=== PATIENT | male | born 1965 | race Caucasian/White ===

== ENCOUNTER 2019-04-15 11:04 | Outpatient (CLI) | payer BC, SELFPAY ==
[2019-04-15 11:18] LABS: Add Urine Microscopic? NO; Appearance Urine Clear (Clear); Bilirubin Urine Negative (Negative); Blood Urine Negative (Negative); Color Urine Yellow (Yellow); Glucose Urine UA Negative (Negative); Ketones Urine Negative (Negative); Leukocyte Esterase Ur Negative (Negative); Nitrate Urine Negative (Negative); Protein Urine Negative (Negative); Urobilinogen Urine 0.2 mg/dL (0.2-1.0); pH Urine 6.5 (5.0-8.0)
[2019-04-15 13:39] LABS: Anion Gap 14.7 mmol/L (7-16); Aspartate Amino Transferase 14 U/L (15-37); Bilirubin,Total 0.4 mg/dL (0.00-1.00); Blood Urea Nitrogen 17 mg/dL (7-18); Calcium 8.8 mg/dL (8.5-10.1); Carbon Dioxide 26 mmol/L (21-32); Chloride 106 mmol/L (98-108); Estimated Glomerular Filt Rate > 60; Glucose 93 mg/dL (70-99); Osmolality Calculated 295 mOsm/kg (285-295); Potassium 4.7 mmol/L (3.5-5.1); Sodium 142 mmol/L (136-145)
[2019-04-15 13:40] LABS: Alanine Aminotransferase 28 U/L (16-63); Albumin Level 4.4 g/dL (3.4-5.0); Alkaline Phosphatase 54 U/L (46-116); Cholesterol 196 mg/dL (0-200); Creatine Kinase 90 U/L (39-308); HDL Direct 45 mg/dL (40-60); LDL Cholesterol Calculated 132 mg/dL (<130); Prostate Specific Antigen 1.2 ng/mL (< OR = 4.0); Total Protein 7.2 g/dL (6.4-8.2); Triglycerides 93 mg/dL (0-150)
== END 2019-04-15 11:05 | disposition home or self-care (01) ==
LOC: CHSLAB 11:09
PROVIDERS: PCP Internal Medicine; Visit Provider Internal Medicine
DX: E78.2 Mixed hyperlipidemia (principal); I10 Essential (primary) hypertension; R73.01 Impaired fasting glucose; Z12.5 Encounter for screening for malignant neoplasm of prostate
CPT/HCPCS: 36415; 80053; 80061; 81003; 82550; 83036; 84153; G0103

== ENCOUNTER 2019-11-07 09:55 | Outpatient (CLI) | payer BC, SELFPAY ==
[2019-11-07 10:27] LABS: Add Urine Microscopic? NO; Appearance Urine Clear (Clear); Bilirubin Urine Negative (Negative); Blood Urine Negative (Negative); Color Urine Yellow (Yellow); Glucose Urine UA Negative (Negative); Ketones Urine Negative (Negative); Leukocyte Esterase Ur Negative (Negative); Nitrate Urine Negative (Negative); Protein Urine Negative (Negative); Specific Grav Ur 1.025 (1.010-1.020); Urobilinogen Urine 0.2 mg/dL (0.2-1.0)
[2019-11-07 10:32] LABS: Hemoglobin A1C 5.5 % (<5.7)
[2019-11-07 11:03] LABS: Alanine Aminotransferase 26 U/L (16-63); Albumin Level 4.5 g/dL (3.4-5.0); Alkaline Phosphatase 60 U/L (46-116); Anion Gap 9 mmol/L (8-16); Aspartate Amino Transferase 10 U/L (15-37); Bilirubin,Total 0.6 mg/dL (0.00-1.00); Blood Urea Nitrogen 18 mg/dL (7-18); Carbon Dioxide 26 mmol/L (21-32); Chloride 103 mmol/L (98-108); Cholesterol 273 mg/dL (0-200); Creatine Kinase 73 U/L (39-308); Estimated Glomerular Filt Rate > 60; Glucose 103 mg/dL (70-99); HDL Direct 46 mg/dL (40-60); LDL Cholesterol Calculated 198 mg/dL (<130); Osmolality Calculated 287 mOsm/kg (285-295); Prostate Specific Antigen 1.2 ng/mL (< OR = 4.0); Sodium 138 mmol/L (136-145); Total Protein 7.3 g/dL (6.4-8.2); Triglycerides 146 mg/dL (0-150)
== END 2019-11-07 09:56 | disposition home or self-care (01) ==
PROVIDERS: PCP Internal Medicine; Visit Provider Internal Medicine
DX: E78.2 Mixed hyperlipidemia (principal); I10 Essential (primary) hypertension; R73.01 Impaired fasting glucose; Z12.5 Encounter for screening for malignant neoplasm of prostate
CPT/HCPCS: 36415; 80053; 80061; 81003; 82550; 83036; 84153; G0103

== ENCOUNTER 2020-05-18 08:39 | Outpatient (CLI) | payer BC, SELFPAY ==
[2020-05-18 08:50] LABS: Add Urine Microscopic? NO; Appearance Urine Clear (Clear); Bilirubin Urine Negative (Negative); Blood Urine Negative (Negative); Color Urine Yellow (Yellow); Glucose Urine UA Negative (Negative); Ketones Urine Negative (Negative); Leukocyte Esterase Ur Negative (Negative); Nitrate Urine Negative (Negative); Protein Urine Negative (Negative); Urobilinogen Urine 0.2 mg/dL (0.2-1.0)
[2020-05-18 08:59] LABS: Hemoglobin A1C 5.9 % (<5.7)
[2020-05-18 09:20] LABS: Alanine Aminotransferase 28 U/L (16-63); Albumin Level 4.1 g/dL (3.4-5.0); Alkaline Phosphatase 54 U/L (46-116); Anion Gap 10 mmol/L (8-16); Aspartate Amino Transferase 15 U/L (15-37); Bilirubin,Total 0.4 mg/dL (0.00-1.00); Blood Urea Nitrogen 14 mg/dL (7-18); Calcium 8.9 mg/dL (8.5-10.1); Carbon Dioxide 27 mmol/L (21-32); Chloride 104 mmol/L (98-108); Cholesterol 150 mg/dL (0-200); Creatine Kinase 112 U/L (39-308); Estimated Glomerular Filt Rate > 60; Glucose 105 mg/dL (70-99); HDL Direct 44 mg/dL (40-60); LDL Cholesterol Calculated 89 mg/dL (<130); Osmolality Calculated 292 mOsm/kg (285-295); Potassium 4.5 mmol/L (3.5-5.1); Sodium 141 mmol/L (136-145); Total Protein 6.8 g/dL (6.4-8.2); Triglycerides 84 mg/dL (0-150)
== END 2020-05-18 08:40 | disposition home or self-care (01) ==
PROVIDERS: PCP Internal Medicine; Visit Provider Internal Medicine
DX: R73.01 Impaired fasting glucose (principal); I10 Essential (primary) hypertension; E78.2 Mixed hyperlipidemia
CPT/HCPCS: 36415; 80053; 80061; 81003; 82550; 83036

== ENCOUNTER 2020-11-06 10:21 | Outpatient (CLI) | payer BC, SELFPAY ==
--- NOTE | ~2020-11-06 | XR_ITS ---
EXAMINATION: XR forearm RT 2V, XR hand RT min 3V, XR wrist RT min 3V DATE: 11/06/2020 10:47 INDICATION: TECHNIQUE: 1. AP an lateral views of the affected forearm were obtained. 2. Posteroanterior, ulnar deviation, oblique, and lateral views of the right wrist were obtained. 2. Dorsal palmar, oblique and lateral views of the right hand were obtained. COMPARISON: None. FINDINGS: Alignment of the right elbow, hand and wrist are normal. Thin linear lucency consistent with nondispl aced fracture extending across the base of the ulnar styloid process. There is soft tissue swelling a long the ulnar side of the wrist and distal forearm. No other fractures identified. Mild polyarticula r osteoarthritis at the distal radioulnar, triscaphe and a few predominantly distal interphalangeal j oints. No right elbow joint effusion. Small enthesopathic ossicles at the medial and lateral humeral epicondyles. IMPRESSION: 1. Nondisplaced fracture across the base of the ulnar styloid process. Reviewed, dictated and finalized at location A. IMPRESSION: 1. Nondisplaced fracture across the base of the ulnar styloid process. IMPRESSION: 1. Nondisplaced fracture across the base of the ulnar styloid process.
== END 2020-11-06 10:22 | disposition home or self-care (01) ==
LOC: CHSIMG 10:26
PROVIDERS: PCP Internal Medicine; Visit Provider Internal Medicine
DX: S69.91XA Unspecified injury of right wrist, hand and finger(s), initial encounter (principal); S59.911A Unspecified injury of right forearm, initial encounter
CPT/HCPCS: 73090; 73110; 73130

== ENCOUNTER 2020-12-06 09:09 | Outpatient (CLI) | payer BC, SELFPAY ==
--- NOTE | ~2020-12-06 | XR_ITS ---
XR wrist RT min 3V DATE: 12/06/2020 09:56 INDICATION: Fracture follow-up TECHNIQUE: 4 views COMPARISON: 11/06/2020 right wrist FINDINGS: The linear nondisplaced fracture of the base of the ulnar styloid process is more lucent co mpared to 11/06/2020, compatible with some bone resorption at the fracture site and/or interval minima l displacement. No other fracture or dislocation. Radiocarpal alignment is preserved. There is narrowing at the triscaphe joint. IMPRESSION: Increased lucency at the fracture line at the base of the ulnar styloid process Reviewed, dictated and finalized at location B. IMPRESSION: Increased lucency at the fracture line at the base of the ulnar sty loid process
[2020-12-06 09:21] LABS: Add Urine Microscopic? NO; Appearance Urine Clear (Clear); Bilirubin Urine Negative (Negative); Blood Urine Negative (Negative); Color Urine Light Yellow (Yellow); Glucose Urine UA Negative (Negative); Ketones Urine Negative (Negative); Leukocyte Esterase Ur Negative (Negative); Nitrate Urine Negative (Negative); Protein Urine Negative (Negative); Urobilinogen Urine 0.2 mg/dL (0.2-1.0)
[2020-12-06 09:30] LABS: Creatinine Urine 71.41 mg/dL (40-278); MALB Creatinine Ratio 18.2 mg/g (0-30); Microalbumin Urine Random < 13.0 mg/L
[2020-12-06 09:31] LABS: Hemoglobin A1C 5.9 % (<5.7)
[2020-12-06 09:59] LABS: Alanine Aminotransferase 31 U/L (16-63); Alkaline Phosphatase 52 U/L (46-116); Anion Gap 12 mmol/L (8-16); Aspartate Amino Transferase 13 U/L (15-37); Bilirubin,Total 0.4 mg/dL (0.00-1.00); Blood Urea Nitrogen 14 mg/dL (7-18); Calcium 8.7 mg/dL (8.5-10.1); Carbon Dioxide 25 mmol/L (21-32); Chloride 102 mmol/L (98-108); Cholesterol 167 mg/dL (0-200); Creatine Kinase 67 U/L (39-308); Estimated Glomerular Filt Rate > 60; Glucose 96 mg/dL (70-99); HDL Direct 46 mg/dL (40-60); LDL Cholesterol Calculated 99 mg/dL (<130); Osmolality Calculated 288 mOsm/kg (285-295); Potassium 4.4 mmol/L (3.5-5.1); Prostate Specific Antigen 1.6 ng/mL (< OR = 4.0); Sodium 139 mmol/L (136-145); Total Protein 6.7 g/dL (6.4-8.2); Triglycerides 108 mg/dL (0-150)
== END 2020-12-06 09:10 | disposition home or self-care (01) ==
LOC: CHSLAB 09:11
PROVIDERS: PCP Internal Medicine; Visit Provider Internal Medicine
DX: K21.9 Gastro-esophageal reflux disease without esophagitis (principal); I10 Essential (primary) hypertension; E78.2 Mixed hyperlipidemia; R73.01 Impaired fasting glucose; Z12.5 Encounter for screening for malignant neoplasm of prostate; S62.101D Fracture of unspecified carpal bone, right wrist, subsequent encounter for fracture with routine healing
CPT/HCPCS: 36415; 73110; 80053; 80061; 81003; 82043; 82550; 83036; 84153; G0103

== ENCOUNTER 2021-01-01 09:31 | Outpatient (CLI) | payer BC, SELFPAY ==
--- NOTE | ~2021-01-01 | MR_ITS ---
EXAMINATION: MR wrist RT wo con DATE: 01/01/2021 10:55 INDICATION: Fracture of styloid process of right ulna. TECHNIQUE: Magnetic resonance imaging (MRI) of the wrist was performed without intravenous contrast. Sequences performed include coronal T1-weighted FSE, coronal PD-weighted FS FSE, axial PD-weighted FS FSE, axial PD-weighted FSE, sagittal PD-weighted FSE, and sagittal PD-weighted FS FSE. COMPARISON: Right wrist radiographs 12/06/2020, 11/06/2020 FINDINGS: Intrinsic ligaments: Scapholunate ligament is intact. Lunotriquetral ligament is intact. Triangular fibrocartilage complex (TFCC): There is a partial tear of the distal surface of triangular fibrocartilage. Extensor wrist: The extensor tendons are normal. Flexor wrist: The flexor tendons are normal. Median nerve is normal. Guyon's canal: Ulnar nerve is normal. Bones/other: There is a nondisplaced fracture of ulnar styloid with bone marrow edema. There is mild bone marrow e kelsie in proximal palmar aspects of lunate and triquetrum. There is a 15 x 10 mm multiloculated gangli on cyst at the palmar aspect of radioscaphoid joint. IMPRESSION: 1. Subacute fracture of ulnar styloid. 2. Partial tear of distal surface of triangular fibrocartilage. 3. Ganglion cyst palmar to radioscaphoid joint. Reviewed, dictated and finalized at location A. 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
== END 2021-01-01 09:32 | disposition home or self-care (01) ==
LOC: CHSIMG 09:32
PROVIDERS: PCP Internal Medicine; Visit Provider Internal Medicine
DX: S52.611D Displaced fracture of right ulna styloid process, subsequent encounter for closed fracture with routine healing (principal)
CPT/HCPCS: 73221

== ENCOUNTER 2021-03-06 08:57 | Outpatient (CLI) | payer BC, SELFPAY ==
--- NOTE | ~2021-03-06 | XR_ITS ---
EXAMINATION: XR wrist RT min 3V DATE: 03/06/2021 09:19 INDICATION: Ulnar styloid fracture. Follow-up. TECHNIQUE: 4 views of right wrist were obtained. COMPARISON: Right wrist radiographs 12/06/2020, 11/06/2020, MRI 01/01/2021 FINDINGS: There is a fracture of the ulnar styloid with less than 2 mm distraction. No visible callus . There is mild osteoarthritis of first carpometacarpal joint and second metacarpophalangeal joint. IMPRESSION: 1. Unchanged fracture of ulnar styloid. Reviewed, dictated and finalized at location B. UCT SAFETY EXPERT
== END 2021-03-06 08:58 | disposition home or self-care (01) ==
LOC: CHSIMG 08:59
PROVIDERS: PCP Internal Medicine; Visit Provider Internal Medicine
DX: S62.101D Fracture of unspecified carpal bone, right wrist, subsequent encounter for fracture with routine healing (principal)
CPT/HCPCS: 73110

== ENCOUNTER 2021-06-01 08:22 | Outpatient (CLI) | payer BC, SELFPAY ==
[2021-06-01 08:40] LABS: Add Urine Microscopic? NO; Appearance Urine Clear (Clear); Bilirubin Urine Negative (Negative); Blood Urine Negative (Negative); Color Urine Light Yellow (Yellow); Glucose Urine UA Negative (Negative); Ketones Urine Negative (Negative); Leukocyte Esterase Ur Negative (Negative); Nitrate Urine Negative (Negative); Protein Urine Negative (Negative); Specific Grav Ur 1.025 (1.010-1.020); Urobilinogen Urine 0.2 mg/dL (0.2-1.0)
[2021-06-01 08:49] LABS: Hemoglobin A1C 6.3 % (<5.7)
[2021-06-01 09:10] LABS: Alanine Aminotransferase 31 U/L (16-63); Albumin Level 3.9 g/dL (3.4-5.0); Alkaline Phosphatase 63 U/L (46-116); Anion Gap 10 mmol/L (8-16); Aspartate Amino Transferase 19 U/L (15-37); Bilirubin,Total 0.2 mg/dL (0.00-1.00); Blood Urea Nitrogen 20 mg/dL (7-18); Calcium 8.8 mg/dL (8.5-10.1); Carbon Dioxide 25 mmol/L (21-32); Chloride 104 mmol/L (98-108); Cholesterol 195 mg/dL (0-200); Creatine Kinase 220 U/L (39-308); Estimated Glomerular Filt Rate > 60; Glucose 113 mg/dL (70-99); HDL Direct 40 mg/dL (40-60); LDL Cholesterol Calculated 120 mg/dL (<130); Osmolality Calculated 291 mOsm/kg (285-295); Potassium 4.5 mmol/L (3.5-5.1); Sodium 139 mmol/L (136-145); Total Protein 6.6 g/dL (6.4-8.2); Triglycerides 176 mg/dL (0-150)
== END 2021-06-01 08:23 | disposition home or self-care (01) ==
LOC: CHSLAB 08:24
PROVIDERS: PCP Internal Medicine; Visit Provider Internal Medicine
DX: R73.01 Impaired fasting glucose (principal); E78.2 Mixed hyperlipidemia; I10 Essential (primary) hypertension
CPT/HCPCS: 36415; 80053; 80061; 81003; 82550; 83036

== ENCOUNTER 2021-12-06 11:14 | Outpatient (CLI) | payer BC, SELFPAY ==
[2021-12-06 11:35] LABS: Basophils Absolute Auto 0.05 K/mm3 (0.00-0.10); Basophils Percent Auto 0.6 % (0.0-1.0); Eosinophils Absolute Auto 0.22 K/mm3 (0.02-0.50); Eosinophils Percent Auto 2.6 % (1.0-6.0); Hematocrit 42.9 % (40.0-54.0); Hemoglobin 14.2 g/dL (14.0-18.0); Immature Granulocyte Absolute 0.03 K/mm3 (0.00-0.00); Immature Granulocyte Percent A 0.4 % (0.0-0.0); Lymphocytes Percent Auto 23.5 % (18.0-42.0); Mean Corpuscular HGB Conc 33.1 g/dL (32.0-36.0); Mean Corpuscular Hemoglobin 31.2 pg (27.0-31.0); Mean Corpuscular Volume 94.3 fL (78.0-102.0); Mean Platelet Volume 11.6 fl (8.7-11.0); Monocytes Absolute Auto 0.84 K/mm3 (0.10-0.90); Monocytes Percent Auto 9.9 % (2.0-11.0); Neutrophils Absolute Auto 5.4 K/mm3 (1.7-7.2); Platelet Count Result 173 K/mm3 (150-420); Red Blood Count 4.55 M/mm3 (4.70-6.10); Red Cell Distribution Width 12.6 % (11.6-14.4); White Blood Count 8.5 K/mm3 (4.8-10.8)
[2021-12-06 11:42] LABS: Appearance Urine Clear (Clear); Bilirubin Urine Negative (Negative); Blood Urine Negative (Negative); Glucose Urine UA Negative (Negative); Ketones Urine Negative (Negative); Leukocyte Esterase Ur Negative LEU/UL (Negative); Nitrate Urine Negative (Negative); Protein Urine Negative (Negative); Urobilinogen Urine 0.2 mg/dL (0.2-1.0); pH Urine 6.5 (5.0-8.0)
[2021-12-06 11:43] LABS: Add Urine Microscopic? NO; Color Urine Light Yellow (Yellow)
[2021-12-06 11:51] LABS: Hemoglobin A1C 5.7 % (<5.7)
[2021-12-06 12:31] LABS: Alanine Aminotransferase 25 U/L (16-63); Alkaline Phosphatase 49 U/L (46-116); Anion Gap 9 mmol/L (8-16); Aspartate Amino Transferase 14 U/L (15-37); Bilirubin,Total 0.4 mg/dL (0.00-1.00); Blood Urea Nitrogen 13 mg/dL (7-18); Calcium 8.6 mg/dL (8.5-10.1); Carbon Dioxide 25 mmol/L (21-32); Chloride 105 mmol/L (98-108); Cholesterol 164 mg/dL (0-200); Creatine Kinase 91 U/L (39-308); Estimated Glomerular Filt Rate > 60; Glucose 91 mg/dL (70-99); HDL Direct 44 mg/dL (40-60); LDL Cholesterol Calculated 100 mg/dL (<130); Osmolality Calculated 288 mOsm/kg (285-295); Potassium 4.2 mmol/L (3.5-5.1); Prostate Specific Antigen 1.6 ng/mL (< OR = 4.0); Sodium 139 mmol/L (136-145); Total Protein 6.5 g/dL (6.4-8.2); Triglycerides 98 mg/dL (0-150)
== END 2021-12-06 11:15 | disposition home or self-care (01) ==
LOC: CHSLAB 11:16
PROVIDERS: PCP Internal Medicine; Visit Provider Internal Medicine
DX: Z00.00 Encounter for general adult medical examination without abnormal findings (principal); I10 Essential (primary) hypertension; E78.2 Mixed hyperlipidemia; E11.9 Type 2 diabetes mellitus without complications; Z12.5 Encounter for screening for malignant neoplasm of prostate
CPT/HCPCS: 36415; 80053; 80061; 81003; 82550; 83036; 84153; 85025; G0103

== ENCOUNTER 2022-03-23 10:07 | Emergency (ER) | payer OTHER, SELFPAY ==
[2022-03-23] VITALS (29 sets, daily range): BP systolic 128–161; BP diastolic 89–102; PULSE 63–99; RESP 11–25; TEMP 36.2–36.8; O2SAT 91–98
--- NOTE | ~2022-03-23 | XR_ITS ---
EXAMINATION: XR chest 1V portable 03/23/2022 10:28 INDICATION: Mid chest pain PROCEDURE: AP portable chest COMPARISON: No prior studies for comparison. FINDINGS: The lungs are clear. The cardiomediastinal silhouette is within normal limits. There are no pleural effusions. There is no pneumothorax suspected. IMPRESSION: 1: NO ACUTE CARDIOPULMONARY DISEASE. Reviewed, dictated and finalized at location A. 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
--- NOTE | 2022-03-23 10:11 | ECG_ITS ---
Measurements Intervals [place] Rate: 66 P: 48 ME: 183 QRS: 21 QRSD: 102 T: 30 QT: 414 QTc: 435 Interpretive Statements SINUS RHYTHM VENTRICULAR PREMATURE COMPLEX CONSIDER INFERIOR INFARCT, AGE INDETERMINATE ABNORMAL ECG NO PREVIOUS ECG AVAILABLE FOR COMPARISON Electronically Signed On 03-23-2022 19:42:13 PAYROLL REPRESENTATIVE by Maurizio AYALA
--- NOTE | 2022-03-23 10:11 | ECG_ITS ---
Measurements Intervals [place] Rate: P: VT: QRS: QRSD: T: QT: QTc: Interpretive Statements SINUS RHYTHM BASELINE ARTIFACT- II, III, AVL, AVF NORMAL ECG Electronically Signed On 03-24-2022 8:31:32 PIECE GOODS CLERK by Maurizio Macedo D.O.
--- NOTE | 2022-03-23 10:18 | ED.GENADULT ---
HPI - General Adult General Chief complaint: Chest Pain Stated complaint: chest pain Time Seen by Provider: 03/23/22 10:16 History of Present Illness HPI narrative: Erlinda is a 57M with a PMH of HTN and tobacco abuse that presented to the ED with chest pain for 1 week. He had had chest pressure off and on for the last week that became worse last night and today. It is a non-radiating substernal chest pressure. No N/V, lightheadedness, or dyspnea. Related Data Home Medications Medication Instructions Recorded Confirmed Unable to Obtain Home Medications 03/23/22 03/23/22 Allergies Allergy/AdvReac Type Severity Reaction Status Date / Time No Known Allergies Allergy Verified 03/23/22 10:34 Review of Systems Review of Systems: All systems reviewed & are unremarkable except as noted in HPI and below PMFSH Family History Family History Other Hypertension Social History Social History Smoking status: Smoker, status unknown Alcohol intake: current Exam Const: General: healthy appearing and no acute distress Nutritional Appearance: well nourished Orientation/consciousness: patient oriented x3 Limitations: no limitations HENMT: Head: normal to inspection Ears: external ears normal Eyes: Conjunctivae: conjunctivae normal Pupils: Equal, round and reactive pupils present EOM: EOMs intact bilaterally Neck: Neck: normal visual inspection Chest: Chest palpation & inspection: normal inspection of the chest Resp: Effort & Inspection: normal respiratory effort Auscultation: clear to auscultation bilaterally Cardio: Rate: regular rate Rhythm: regular rhythm GI: Inspection: distended GI Palp: Yes Soft to palpation, No Tenderness to palpation present (GI) and No Guarding due to palpation present (GI) Skin: General skin exam: normal color Rashes: no rashes Neuro: General: patient oriented x3 Cranial nerves: Yes Nystagmus not present Extrem: General: normal to inspection Psych: Mental Status: mental status grossly normal Affect: normal affect Course Course Emergency Course: Ordered labs, cxr, and ekg EKG showed NSR with a rate of 77, normal axis and no ST elevation/depression EXAMINATION: XR chest 1V portable 03/23/2022 10:28 INDICATION: Mid chest pain PROCEDURE:? AP portable chest COMPARISON: No prior studies for comparison. FINDINGS: The lungs are clear.? The cardiomediastinal silhouette is within normal limits.? There are no pleural effusions.? There is no pneumothorax suspected.? IMPRESSION: 1:? NO ACUTE CARDIOPULMONARY DISEASE. Troponin was very elevated. He was given lovenox and [facility] was contacted for transfer. At 1245 [facility] accepted the patient for Dr. Gallegos He was transferred at 1340 to [facility] for a cardiology evaluation Vital Signs Vital signs: Vital Signs Temperature 97.2 F L 03/23/22 10:10 Pulse Rate 81 03/23/22 10:10 Respiratory Rate 18 03/23/22 10:10 Blood Pressure 148/98 H 03/23/22 10:10 Pulse Oximetry 97 03/23/22 10:10 Oxygen Delivery Room Air 03/23/22 10:10 Temperature 98.2 F 03/23/22 13:15 Pulse Rate 63 03/23/22 13:15 Respiratory Rate 15 03/23/22 13:15 Blood Pressure 155/89 H 03/23/22 13:15 Pulse Oximetry 97 03/23/22 13:15 Oxygen Delivery Room Air 03/23/22 13:15 Medical Decision Making Vital Signs Vital Signs: Vital Signs Temperature 97.2 F L 03/23/22 10:10 Pulse Rate 81 03/23/22 10:10 Respiratory Rate 18 03/23/22 10:10 Blood Pressure 148/98 H 03/23/22 10:10 Pulse Oximetry 97 03/23/22 10:10 Oxygen Delivery Room Air 03/23/22 10:10 Temperature 98.2 F 03/23/22 13:15 Pulse Rate 63 03/23/22 13:15 Respiratory Rate 15 03/23/22 13:15 Blood Pressure 155/89 H 03/23/22 13:15 Pulse Oximetry 97 03/23/22 13:15 Oxygen Delivery Room Air 03/23/22 13:15 Lab Jeremy
[2022-03-23] MEDS: ASPIRIN 81 MG CHEWABLE TABLET 324 MG PO (10:54)
[2022-03-23] MEDS: NITROGLYCERIN SL 0.4 MG TABLET SUBLINGUAL (10:55)
[2022-03-23] MEDS: MAG HYDROX/ALUMINUM HYD/SIMETH 30 ML, PHENobarb/HYOSCY/ATROPINE/SCOP 32.4 MG, LIDOCAINE... PO (11:10)
[2022-03-23 11:15] LABS: Basophils Absolute Auto 0.04 K/mm3 (0.00-0.10); Basophils Percent Auto 0.4 % (0.0-1.0); Eosinophils Absolute Auto 0.27 K/mm3 (0.02-0.50); Hematocrit 43.7 % (40.0-54.0); Hemoglobin 14.8 g/dL (14.0-18.0); Immature Granulocyte Absolute 0.02 K/mm3 (0.00-0.00); Immature Granulocyte Percent A 0.2 % (0.0-0.0); Lymphocytes Absolute Auto 1.69 K/mm3 (1.10-4.50); Mean Corpuscular HGB Conc 33.9 g/dL (32.0-36.0); Mean Corpuscular Hemoglobin 31.7 pg (27.0-31.0); Mean Corpuscular Volume 93.6 fL (78.0-102.0); Mean Platelet Volume 11.7 fl (8.7-11.0); Neutrophils Absolute Auto 6.1 K/mm3 (1.7-7.2); Neutrophils Percent Auto 68.4 % (50.0-70.0); Platelet Count Result 184 K/mm3 (150-420); Red Blood Count 4.67 M/mm3 (4.70-6.10); Red Cell Distribution Width 12.9 % (11.6-14.4); White Blood Count 8.9 K/mm3 (4.8-10.8)
[2022-03-23 11:45] LABS: Alanine Aminotransferase 27 U/L (16-63); Albumin Level 3.9 g/dL (3.4-5.0); Alkaline Phosphatase 58 U/L (46-116); Anion Gap 8 mmol/L (8-16); Aspartate Amino Transferase 36 U/L (15-37); Bilirubin,Total 0.4 mg/dL (0.00-1.00); Blood Urea Nitrogen 19 mg/dL (7-18); Calcium 8.3 mg/dL (8.5-10.1); Carbon Dioxide 28 mmol/L (21-32); Chloride 102 mmol/L (98-108); Estimated CRCL calculation 108 ml/min; Estimated Glomerular Filt Rate > 60; Glucose 130 mg/dL (70-99); Lipase 22 U/L (16-77); Magnesium 1.8 mg/dL (1.8-2.4); NT Pro B Type Natriuretic Pept 528 pg/mL (0-125); Osmolality Calculated 290 mOsm/kg (285-295); Sodium 138 mmol/L (136-145); Total Protein 7.1 g/dL (6.4-8.2)
[2022-03-23 11:54] LABS: Influenza A QL RT-PCR Negative (Negative); Influenza B QL RT-PCR Negative (Negative); SARS-CoV-2 RNA PCR Negative (Negative)
[2022-03-23] MEDS: ENOXAPARIN 100 MG/ML SYRINGE SUB-Q (12:02)
[2022-03-23 12:04] LABS: RSV RNA, RT-PCR Negative (Negative)
== END 2022-03-23 13:40 | disposition short-term general hospital (02) ==
PROVIDERS: Emergency Provider Family Medicine; PCP Internal Medicine
DX: I21.4 Non-ST elevation (NSTEMI) myocardial infarction (principal); I10 Essential (primary) hypertension; F17.200 Nicotine dependence, unspecified, uncomplicated; Z79.82 Long term (current) use of aspirin; Z20.822 Contact with and (suspected) exposure to COVID-19
CPT/HCPCS: 36415; 71045; 80053; 83690; 83735; 83880; 84484; 85025; 87637; 93005; 96372; 99285; A9270; J1650

== ENCOUNTER 2022-03-23 14:11 | Inpatient (IN) | payer OTHER, SELFPAY ==
[2022-03-23] VITALS (8 sets, daily range): BP systolic 131–151; BP diastolic 76–90; PULSE 64–82; RESP 14–20; TEMP 35.8–37.4; O2SAT 96–100; BMI 28.6
--- NOTE | 2022-03-23 14:33 | ADMGEN ---
This patient, Erlinda Luna, was admitted to IMU Room 211-01. Patient/family oriented to hospital policies and general routines including ID bracelet, bed and alarms, visiting hours, pain management, procedures, bathroom and other care routines, personal items, smoking policy, room service/diet, and visiting hours. Information on how to activate the Rapid Response Team has been discussed. Patient/Family are encouraged to report perceived risks to care and to ask questions if they do not understand what they are told or what they should do.
--- NOTE | 2022-03-23 15:12 | PM.IMHP ---
H&P: HPI History of Present Illness Date/Time: 03/23/22 15:30 Chief Complaint: Chest pain. Narrative: This is a very pleasant 57-year-old male smoker with hypertension, dyslipidemia, and laryngopharyngeal reflux who presented to the emergency department at the [facility] this morning for evaluation of chest pain. Patient provides the following history. He reports intermittent episodes of nonradiating, self-limiting substernal chest heaviness over the past 1 week. He does not necessarily see a pattern as to when it occurs; it can happen simply while sitting down. However last while at work he had an episode while he was walking which seemed to improve with rest. He denies associated symptoms but does mention that with the aforementioned walk he felt short of breath but goes on to say that he blames that on the frigid air. He denies near-syncope, syncope, sweats, nausea, and vomiting. No palpitations, sensations of racing heart, pleuritic pain, orthopnea, paroxysmal nocturnal dyspnea, or lower extremity edema. He denies epigastric/abdominal pain and GERD symptoms (reports history of silent reflux for which he takes omeprazole). On arrival to the ED his blood pressure was 148/98. EKG reportedly showed no ST segment elevation or depression however I do not have a copy of that for personal review. CBC and CMP were pretty unremarkable. High sensitivity troponin was elevated at 3130.5. He was given a dose of sublingual nitroglycerin without much benefit. GI cocktail helped perhaps somewhat. He has since been transferred to [place] in this setting for further workup and Cardiology consultation. At the time my evaluation he is resting comfortably and has no specific complaints. Review of Systems Review of Systems: Twelve systems were reviewed and are negative except for as per HPI. [facility] Past Medical History Medical History (Updated 03/23/22 @ 18:04 by Sammie Mittal PA-C) Dyslipidemia Hypertension Laryngopharyngeal reflux Tobacco dependence Surgical History Surgical History (Updated 03/23/22 @ 18:00 by Sammie Mittal PA-C) History of appendectomy Family History Family History (Updated 03/23/22 @ 18:00 by Sammie Mittal PA-C) Father Lung cancer Other Hypertension Social History Social History (Updated 03/23/22 @ 18:01 by Sammie Mittal PA-C) Social History: Surrogate medical decision maker: Devi Luna, spouse. Code status: Full code. Smoking packs per day: 1 Smoking cigarettes per day: 20.0 Smoking status: Current every day smoker Tobacco type: cigarettes Additional smoking assessment comments: Typically smokes a bit less than a pack of cigarettes a day. Alcohol intake: current Alcohol use details: 6-8 beers on the weekend. Substance use: never Lack of Transportation: No Lack of Food: Never True Current Housing: I Have Housing Concerned About Future Housing: No Difficulty Paying Gas/Electric Bills: No Difficulty Paying for Meds: No Currently Unemployed: No Education: High School Diploma/GED Difficulty w/ Childcare or Family Care: No Additional living arrangements comments: Resides in [place] with spouse. They have 5 children. 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 Spiritual care concerns: No Meds Home Medications and Allergies Home Medications Medication Instructions Recorded Confirmed Type Norvasc 5 mg PO DAILY 03/23/22 03/23/22 History losartan-hydrochlorothiazide 100 mg PO DAILY 03/23/22 03/23/22 History omeprazole 40 mg capsule,delayed 40 mg PO DAILY 03/23/22 03/23/22 History release rosuvastatin 10 mg tablet 10 mg PO DAILY 03/23/22 03/23/22 History Allergies Allergy/AdvReac Type Severity Reaction Status Date / Time No Known Allergies Allergy Verified 03/23/22 10:34 Vital Signs Vital Signs - 24 hr 03/23/22 14:25 Temperature 96.6 F L Pulse Rate 64 Respi
--- NOTE | 2022-03-23 15:13 | ECG_ITS ---
Measurements Intervals [place] Rate: 66 P: 48 [place]: 183 QRS: 21 QRSD: 102 T: 30 QT: 414 QTc: 435 Interpretive Statements SINUS RHYTHM VENTRICULAR PREMATURE COMPLEX CONSIDER INFERIOR INFARCT, AGE INDETERMINATE ABNORMAL ECG NO PREVIOUS ECG AVAILABLE FOR COMPARISON Electronically Signed On 03-23-2022 19:42:13 CRIME SCENE SPECIALIST by Maurizio AYALA
[2022-03-23 16:16] LABS: Creatine Kinase 396 U/L (55-170)
[2022-03-23] MEDS: METOPROLOL TARTRATE 25 MG TABLET PO (20:45)
[2022-03-23] MEDS: ENOXAPARIN 120 MG/0.8 ML SYRINGE 105 MG SUB-Q (20:45)
[2022-03-23] MEDS: NITROGLYCERIN OINTMENT 1 INCH DOSE TRANSDERM (23:44)
[2022-03-24] VITALS (34 sets, daily range): BP systolic 110–148; BP diastolic 72–97; PULSE 60–97; RESP 9–20; TEMP 36.2–37.1; O2SAT 95–100
--- NOTE | 2022-03-24 | ECHO_ITS ---
Patient Info Name: Erlinda Luna Age: 57 years : 1965 Gender: Male Ht: 74 in Wt: 235 lbs BSA: 2.38 m2 HR: 74 bpm BP: 125 / 85 mmHg Heart Rhythm: Sinus Rhythm Technical Quality: Fair Exam Date: 03/24/2022 12:01 PM Exam Location: [facility] Pulmonary Exam Room: [facility] [place] [facility] [place] Patient Status: Inpatient Admit Date: 03/24/2022 Staff Ordering Physician: Sammie Mittal PA-C Utilization Management Rn: Lauren Hamilton RDCS Attending Provider: Cheyenne Comer DO Referring Physician: Daxa HERRERA; Exam Type: CA echo doppler color flow Study Info Indications - NSTEMI Complete two-dimensional, color flow and Doppler transthoracic echocardiogram is performed. Summary 1. Complete two-dimensional, color flow and Doppler transthoracic echocardiogram is performed. 2. Left ventricular chamber dimension is normal. 3. Left ventricular systolic function is normal, estimated at 55-60%. 4. There is mildly increased left ventricular wall thickness. 5. The left ventricular diastolic function is grade I diastolic dysfunction. 6. Right ventricular systolic function is normal. 7. There is mild tricuspid valve regurgitation. 8. Dilated inferior vena cava with >50% collapse upon inspiration consistent with elevated right atrial pressure, 8 mmHg. Left Ventricle Left ventricular chamber dimension is normal. Left ventricular systolic function is normal, estimated at 55-60%. There is mildly increased left ventricular wall thickness. The left ventricular diastolic function is grade I diastolic dysfunction. Right Ventricle Right ventricular chamber dimension is normal. Right ventricular systolic function is normal. Left Atria Left atrial chamber dimension is normal. Right Atria Right atrial chamber dimension is normal. Atrial Septum Intact interatrial septum visualized by color flow imaging. Aortic Valve The aortic valve is trileaflet. There is no aortic valve stenosis. There is no aortic valve regurgitation. Pulmonic Valve The pulmonic valve is normal. Mitral Valve The mitral valve has thickened leaflets. There is no mitral valve stenosis. There is trace mitral valve regurgitation. The mitral valve annulus is mildly calcified. Tricuspid Valve The tricuspid valve leaflets are normal. There is mild tricuspid valve regurgitation. Pericardium/Pleural There is no pericardial effusion. Inferior Vena Cava Dilated inferior vena cava with >50% collapse upon inspiration consistent with elevated right atrial pressure, 8 mmHg. Aorta The aortic root size at the sinus of Valsalva is normal. Left Ventricular Outflow Tract Name Value Normal LVOT 2D LVOT Diameter 2.2 cm LVOT Doppler LVOT Peak Gradient 3 mmHg LVOT Mean Gradient 2 mmHg LVOT VTI 19 cm LVOT VTI/AV VTI Ratio 1.0 LVOT Stroke Volume 71 ml LVOT CO 14.0 l/min LVOT CI 5.9 l/min/m2 Pulmonic Valve
[2022-03-24 05:23] LABS: Anion Gap 2 mmol/L (8-16); Blood Urea Nitrogen 18 mg/dL (9-20); Calcium 8.1 mg/dL (8.4-10.2); Carbon Dioxide 26 mmol/L (22-30); Chloride 106 mmol/L (98-107); Cholesterol 152 mg/dL (0-200); Estimated CRCL calculation 99 ml/min; Estimated Glomerular Filt Rate > 60; Glucose 123 mg/dL (65-110); HDL Direct 39 mg/dL; Magnesium 2.2 mg/dL (1.6-2.3); Potassium 4.3 mmol/L (3.4-5.0); Sodium 134 mmol/L (137-145); Triglycerides 131 mg/dL (<150)
[2022-03-24 05:34] LABS: LDL Cholesterol Direct 84 mg/dL
[2022-03-24] MEDS: NITROGLYCERIN OINTMENT 1 INCH DOSE TRANSDERM (05:35)
[2022-03-24] MEDS: ROSUVASTATIN 10 MG TABLET PO (08:48)
[2022-03-24] MEDS: METOPROLOL TARTRATE 25 MG TABLET PO (08:48)
[2022-03-24] MEDS: amLODIPine BESYLATE 5 MG TABLET PO (08:48)
[2022-03-24] MEDS: PANTOPRAZOLE 40 MG TABLET PO ×2 (08:48→17:39)
[2022-03-24] MEDS: ASPIRIN 81 MG ENTERIC TABLET PO (08:48)
--- NOTE | 2022-03-24 10:53 | PM.CNCAR ---
Assessment and Plan Assessment and plan (1) Non-ST elevation myocardial infarction (NSTEMI): Code(s): I21.4 - Non-ST elevation (NSTEMI) myocardial infarction Status: Acute Plan This is a 57-year-old man with no previous history of coronary disease with obvious risk factors including hypertension dyslipidemia and smoking. He had several days of waxing and waning chest pain last week relatively severe pain on which certainly might of been indicated a myocardial infarction in any event he did not seek medical attention at that time. His troponin levels are significantly elevated consistent with this concept. He is asymptomatic this morning we will proceed with coronary angiography later today to define his anatomy and further recommendations will be formulated after those angiographic findings are obtained. Haider Ontiveros MD [facility] History of Present Illness History of Present Illness Consult date/time: 03/24/22 10:53 Reason For Visit: NSTEMI Narrative: This is a 57-year-old patient I am seeing at the request of the hospitalist who was transferred here yesterday from the emergency room in [place] because of concern regarding recent myocardial infarction. The patient has no previous history of coronary artery disease. He was having episodes of significant chest pain the past week on Thursday and . 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 The symptoms would wax and wane in intensity. On he had particularly severe pain in the had a severe weight like sensation in the center of the chest. He discuss this with coworkers but elected to sit down and relax to see if the symptoms would resolve later in the day they did and so he did not seek medical attention. On Thursday he had some very mild discomfort yesterday on Thursday he had symptoms discomfort that was more severe again he went to the emergency room up in [place] his electrocardiogram in show any acute changes of injury. His troponin level however was moderately elevated he was transferred here for further evaluation and management. Upon arrival here he was no longer having any chest pain his ECG did not show any significant abnormalities his troponin levels were 4.7-4.9 and relatively flat. In this setting I am seeing him in consultation. The patient is relaxing in his bed his is visiting him he does not appear to be in any distress at this time. He is a gentleman with hypertension dyslipidemia and a longstanding history of cigarette smoking. There is no family history of early coronary artery disease. Review of Systems Constitutional: Constitutional: Reports no additional constitutional complaints Eyes: Eyes: Reports no additional eye complaints ENT: Reports system reviewed and no additional complaints, except as documented Cardiovascular: Cardiovascular: Reports as per HPI and Reports chest pain Respiratory: Respiratory: Reports no additional respiratory complaints Gastrointestinal: Gastrointestinal: Reports no additional gastrointestinal complaints Musculoskeletal: Musculoskeletal: Reports no additional musculoskeletal complaints Integumentary/Breasts: Skin/Breast: Reports system reviewed and no additional complaints, except as docu Neurologic: Reports system reviewed and no additional complaints, except as documented Endocrine: Endocrine: Reports no additional endocrine complaints Hematologic/Lymphatic: Hematologic/Lymphatic: Reports no additional hematologic/lymphatic complaints Allergic/Immunologic: Allergic/Immunologic: Reports no additional allergic/immunologic complaints [facility] Past Medical History Medical History (Updated 03/24/22 @ 00:01 by Background Daалександр) Dyslipidemia Hypertension Laryngopharyngeal reflux Tobacco dependence Surgical History Surgical History (Updated 03/23/22 @ 18:00
--- NOTE | 2022-03-24 11:55 | WPDMODSED ---
Moderate Sedation Note-Pt Data Patient Data Diagnosis: recent episode of chest pain significant troponin elevation Present Complaint: no complaints this morning Procedure to be performed/Plan: left heart catheterization Allergies Allergy/AdvReac Type Severity Reaction Status Date / Time No Known Allergies Allergy Verified 03/23/22 10:34 Home Medications Medication Instructions Recorded Confirmed Type Norvasc 5 mg PO DAILY 03/23/22 03/23/22 History losartan-hydrochlorothiazide 100 mg PO DAILY 03/23/22 03/23/22 History omeprazole 40 mg capsule,delayed 40 mg PO DAILY 03/23/22 03/23/22 History release rosuvastatin 10 mg tablet 10 mg PO DAILY 03/23/22 03/23/22 History Current Medications: Active Medications Acetaminophen (Acetaminophen 325 Mg Tablet) 650 mg PO Q4H PRN PRN Reason: Mild Pain (1-3) or Fever Amlodipine Besylate (Amlodipine Besylate 5 Mg Tablet) 5 mg PO DAILY [facility] Last Admin: 03/24/22 08:48 Dose: 5 mg Aspirin (Aspirin 81 Mg Enteric Tablet) 81 mg PO QAM [facility] Last Admin: 03/24/22 08:48 Dose: 81 mg Dextrose (Dextrose 50% 25 Gm/50 Ml Syringe) 12.5 gm IV PUSH PRN PRN; Protocol PRN Reason: Hypoglycemia Enoxaparin Sodium (Enoxaparin 120 Mg/0.8 Ml Syringe) 105 mg SUB-Q Q12HR [facility] Last Admin: 03/24/22 07:25 Dose: Not Given Glucagon (Glucagon For Inj 1 Mg Vial) 1 mg IM PRN PRN; Protocol PRN Reason: Hypoglycemia Glucose (Glucose Oral Gel 15 Gm Of Glucse In 37.5 Gm Tube) 15 gm PO PRN PRN; Protocol PRN Reason: Hypoglycemia Dextrose (Dextrose 5% 1,000 Ml) 1,000 mls @ 100 mls/hr IVPB PRN PRN; Protocol PRN Reason: Hypoglycemia Metoprolol Tartrate (Metoprolol Tartrate 25 Mg Tablet) 25 mg PO Q12HR [facility] Last Admin: 03/24/22 08:48 Dose: 25 mg Miscellaneous Information (Clarify Hydrochlorothiazide Strength) 1 each XX CLARIFY [facility] Stop: 04/22/22 00:00 Morphine Sulfate (Morphine Sulfate (*Crx) 2 Mg/Ml Inj) 2 mg IV PUSH Q4H PRN PRN Reason: Pain Rated 7-10 Nitroglycerin (Nitroglycerin Ointment 1 Inch Dose) 1 inch TRANSDERM Q6HR [facility] Last Admin: 03/24/22 05:35 Dose: 1 inch Non-Formulary Medication (Losartan-Hydrochlorothiazide) 100 mg PO DAILY [facility] Stop: 04/23/22 08:59 Pantoprazole Sodium (Pantoprazole 40 Mg Tablet) 40 mg PO BID [facility] Last Admin: 03/24/22 08:48 Dose: 40 mg Perflutren Lipid Microsphere (Perflutren Lipid Microspheres 1.5 Ml Vial Diluted To 10 Ml Total Volume) 0 ml IV PUSH ONCE PRN; Protocol PRN Reason: adequate visualization Stop: 03/25/22 15:12 Rosuvastatin Calcium (Rosuvastatin 10 Mg Tablet) 10 mg PO DAILY [facility] Last Admin: 03/24/22 08:48 Dose: 10 mg Sedation/Anesthesia: No previous sedation/anesthesia problems (including family history). [facility] Past Medical History Medical History (Updated 03/24/22 @ 00:01 by Sharon Lazo) Dyslipidemia Hypertension Laryngopharyngeal reflux Tobacco dependence Surgical History Surgical History (Updated 03/23/22 @ 18:00 by Sammie Mittal PA-C) History of appendectomy Family History Family History (Updated 03/23/22 @ 18:00 by Sammie Mittal PA-C) Father Lung cancer Other Hypertension Social History Social History (Updated 03/23/22 @ 18:01 by Sammie Mittal PA-C) Social History: Surrogate medical decision maker: Devi Luna, spouse. Code status: Full code. Smoking packs per day: 1 Smoking cigarettes per day: 20.0 Smoking status: Current every day smoker Tobacco type: cigarettes Additional smoking assessment comments: Typically smokes a bit less than a pack of cigarettes a day. Alcohol intake: current Alcohol use details: 6-8 beers on the weekend. Substance use: never Lack of Transportation: No Lack of Food: Never True Current Housing: I Have Housing Concerned About Future Housing: No Difficulty Paying Gas/Electric Bills: No Difficulty Paying for Meds: No Currently Unemployed: No Education: High School Diploma/GED Difficulty w/ Childca
--- NOTE | 2022-03-24 13:26 | ECG_ITS ---
Measurements Intervals [place] Rate: 72 P: 51 CA: 185 QRS: 20 QRSD: 100 T: 30 QT: 395 QTc: 434 Interpretive Statements SINUS RHYTHM INCOMPLETE RIGHT BUNDLE BRANCH BLOCK VOLTAGE CRITERIA FOR LVH MINIMAL Q WAVES- INFERIOR LEADS BORDERLINE ECG COMPARED TO ECG 03/23/2022 15:52:20 LEFT VENTRICULAR HYPERTROPHY NOW PRESENT Electronically Signed On 03-24-2022 16:18:20 PRIMARY CARE MD by Maurizio Macedo D.O.
--- NOTE | 2022-03-24 13:30 | WPDCARDPROC ---
Cardiac Cath Procedure Note Date of procedure:: 03/24/22 Performing physician:: Haider Ontiveros MD Indication:: non ST-elevation [facility] Brief clinical history:: this is a 57-year-old man with a history of intermittent chest pain for several days prior to coming to the hospital he had significant chest pain 3 days before presentation. ECG has not shown any obvious changes of infarction or ischemia but troponin levels are elevated prompting recommendation for angiography today. Risk factors include hypertension dyslipidemia and cigarette smoking. Procedure Procedure performed:: Coronary angiography left ventriculography PCI(MAURICIO) to OM1 Sedation/Medication given:: fentanyl 50 mg Versed 2 mg case start time 12:34 p.m. case end time 1:20 p.m. sedation provided by Stephani Narvaez RN, trained observer Access site:: right femoral artery Estimated blood loss:: 30 cc Procedure note:: patient was brought to the cardiac catheterization lab in the postabsorptive state where the right femoral triangle was prepared and draped in the normal fashion. Anesthesia was given with 1% lidocaine infiltrated locally. Using the modified Seldinger technique a 5 Tunisian sheath was placed into the right femoral artery after this left heart catheterization was carried out I used a 5 Tunisian angled pigtail catheter to document left-sided hemodynamics and a left ventriculogram in JACOBSEN projection. After this a standard 5 Tunisian FL4 catheter was used to engage and inject the left coronary artery in multiple projections and a 5 Tunisian JR4 catheter was used to engage and inject the right coronary artery. The cineangiograms were then reviewed after which PCI of the OM1 branch of the circumflex was recommended and carried out as detailed below. Prior to PCI the 5 Tunisian sheath was changed over a guidewire for a 6 Tunisian sheath. He was systemically anticoagulated with bolus and infusion of bivalirudin. Patient received 180 mg of Brilinta prior to PCI as well. Following PCI the sheath was sutured into position the patient was taken to the holding area for sheath removal in recovery. Procedure was well tolerated and uncomplicated. There were no signs of a groin hematoma upon him leaving the cardiac catheterization lab. Findings:: Hemodynamics: Central aortic pressure is 1 16 over 76 left ventricle 116/54 end-diastolic pressure 16 there is gradient on pullback across the aortic valve. Left ventricle: The LV is normal in size all segments appear to contract appropriately in the JACOBSEN projection. The global ejection fraction is 50-55%. The left main coronary artery is nicely patent the left anterior descending is a moderate to large caliber artery extending down to around the apex. The LAD has mild diffuse luminal irregularities but no angiographically significant disease was identified. The circumflex is a moderate caliber artery giving rise to the marginal branches. The 1st marginal branch is relatively large and a bifurcating vessel. In the midportion this 1st OM branch has a 99% stenosis with KAMILAH 1 flow distal to the lesion which appears to be the obvious culprit for the patient's clinical presentation. A sub branch of this marginal takes off immediately after the most severe segment of this lesion. There is disease however distal to the sub branch as well. the remainder of the circumflex is free of significant disease. The right coronary artery Is moderate to large in caliber it has a somewhat unusual inferior takeoff but angiographically is free of disease it is widely patent in the trunk as well as in the RPDA and PL branches. intervention: The left coronary artery was engaged using 6 Tunisian CLS 3.5 guiding catheter. I used a 0.014 [employer] coronary guidewire to wire the culprit OM1 branch though a wire was advanced without difficulty into the distal aspect of the largest of the branches of this bifurcating marginal. The lesion was the
--- NOTE | 2022-03-24 14:09 | PM.IMPN ---
Progress Note: A&P Assessment and Plan (1) Non-ST elevation myocardial infarction (NSTEMI): Code(s): I21.4 - Non-ST elevation (NSTEMI) myocardial infarction Status: Acute (2) Hypertension: Code(s): I10 - Essential (primary) hypertension Status: Acute (3) Dyslipidemia: Code(s): E78.5 - Hyperlipidemia, unspecified Status: Acute (4) Laryngopharyngeal reflux: Code(s): K21.9 - Gastro-esophageal reflux disease without esophagitis Status: Acute (5) Tobacco dependence: Code(s): F17.200 - Nicotine dependence, unspecified, uncomplicated Status: Acute Plan The patient presented to the ED for evaluation of intermittent substernal heaviness over the past 1 week. Labs, imaging, reports, and EKG were all personally reviewed. Initial troponin was elevated and he has been transferred to [place] for close monitoring and Cardiology consultation. Dr. Ontiveros was notified by the nursing electric motor repair supervisor. He was given aspirin at the outside facility as well as a dose of Lovenox. Continue Lovenox 1 milligram/kilogram b.i.d.. Start metoprolol tartrate 25 mg b.i.d. Continue rosuvastatin. He will be NPO after midnight in anticipation of further workup. Troponins will be trended to peak. He has no chest pain at this time but he was instructed to let the nurses know ALEJANDRO if he once again starts to have discomfort. Blood pressures will be monitored closely; they were elevated on arrival to the outside facility but have improved somewhat. Continue antihypertensives at current doses. Continue omeprazole which he takes for silent reflux; he does not think his discomfort is related to reflux. Smoking cessation is imperative. He declines the need for nicotine patch. 03/24/2022 interval history: 57-year-old male presented with complaint of chest pain was found to have a non STEMI and taken to the cardiac laborer heading today it showed patient had occlusion of a coronary artery and it was stented, patient also has preserved LV function, patient started on dual anti-platelet therapy, will continue to monitor patient will be seen by drier feeder and further recommendation to follow. Subjective Date/time seen: 03/24/22 14:09 Chest pain. HPI-Narrative: This is a very pleasant 57-year-old male smoker with hypertension, dyslipidemia, and laryngopharyngeal reflux who [place] [facility] [place] evaluation of chest pain. Patient provides the following history. He reports intermittent episodes of nonradiating, self-limiting substernal chest heaviness over the past 1 week. He does not necessarily see a pattern as to when it occurs; it can happen simply while sitting down. However last while at work he had an episode while he was walking which seemed to improve with rest. He denies associated symptoms but does mention that with the aforementioned walk he felt short of breath but goes on to say that he blames that on the frigid air. He denies near-syncope, syncope, sweats, nausea, and vomiting. No palpitations, sensations of racing heart, pleuritic pain, orthopnea, paroxysmal nocturnal dyspnea, or lower extremity edema. He denies epigastric/abdominal pain and GERD symptoms (reports history of silent reflux for which he takes omeprazole). On arrival to the ED his blood pressure was 148/98. EKG reportedly showed no ST segment elevation or depression however I do not have a copy of that for personal review. CBC and CMP were pretty unremarkable. High sensitivity troponin was elevated at 3130.5. He was given a dose of sublingual nitroglycerin without much benefit. GI cocktail helped perhaps somewhat. He has since been transferred to [place] in this setting for further workup and Cardiology consultation. At the time my evaluation he is resting comfortably and has no specific complaints. 03/24/2022 interval history: 57-year-old male presented with complaint of chest pain was fou
[2022-03-24] MEDS: SODIUM CHLORIDE 0.9% IV 1,000 ML 125 ML IV CONT (14:12)
--- NOTE | 2022-03-24 16:24 | SUR.PHASEII ---
Stent card given to with instructions. Copy of stent card placed on front of pt's chart.
[2022-03-24] MEDS: TICAGRELOR 90 MG TABLET PO (20:48)
[2022-03-25] VITALS (7 sets, daily range): BP systolic 112–126; BP diastolic 76–80; PULSE 68–79; RESP 20; TEMP 35.9–36.4; O2SAT 96–100
--- NOTE | 2022-03-25 03:53 | PC.NURSE ---
[facility] flyer was given to patient in admission folder.
--- NOTE | 2022-03-25 05:11 | ECG_ITS ---
Measurements Intervals [place] Rate: 71 P: 53 DE: 182 QRS: 16 QRSD: 106 T: 54 QT: 397 QTc: 432 Interpretive Statements SINUS RHYTHM INCOMPLETE RIGHT BUNDLE BRANCH BLOCK MINIMAL Q WAVES- INFERIOR LEADS BORDERLINE ECG COMPARED TO ECG 03/24/2022 16:15:30 NO SIGNIFICANT CHANGES Electronically Signed On 03-25-2022 10:38:28 [employer]OLLEY WIRE INSTALLER by Maurizio Macedo D.O.
[2022-03-25] MEDS: ROSUVASTATIN 10 MG TABLET 20 MG PO (09:29)
[2022-03-25] MEDS: PANTOPRAZOLE 40 MG TABLET PO (09:29)
[2022-03-25] MEDS: METOPROLOL SUCCINATE EXT REL 25 MG TABCR PO (09:29)
[2022-03-25] MEDS: TICAGRELOR 90 MG TABLET PO (09:30)
[2022-03-25] MEDS: LOSARTAN POTASSIUM 100 MG TABLET PO (09:30)
[2022-03-25] MEDS: ASPIRIN 81 MG CHEWABLE TABLET PO (09:31)
--- NOTE | 2022-03-25 09:52 | PM.PNCARD ---
Progress Note: A&P Assessment and Plan (1) Non-ST elevation myocardial infarction (NSTEMI): Code(s): I21.4 - Non-ST elevation (NSTEMI) myocardial infarction Status: Acute Assessment and Plan: Presented with chest pain and troponin levels trended up to 4.940. He was taken to the lab manager yesterday and was found to have right coronary dominant circulation with single-vessel coronary disease subtotal stenosis of the 1st OM circumflex branch which is the culprit for the patient's clinical presentation with ACS/non STEMI Stable overnight, no recurrence of chest pain Continue DAPT with ASA, Brilinta Continue losartan Continue metoprolol Continue statin Will send referral to cardiac rehab Follow up in our office in a couple of weeks. Subjective Date/time seen: 03/25/22 09:52 Cardiology follow up for NSTEMI Feels well this morning and has no complaints. He denies any chest pain or shortness of breath. Patient's is at the bedside, she and the patient had many questions about his follow up care that were all answered to their satisfaction. Review of Systems Constitutional: Constitutional: Reports no additional constitutional complaints Eyes: Eyes: Reports no additional eye complaints ENT: Reports system reviewed and no additional complaints, except as documented Cardiovascular: Cardiovascular: Reports as per HPI and Reports chest pain Respiratory: Respiratory: Reports no additional respiratory complaints Gastrointestinal: Gastrointestinal: Reports no additional gastrointestinal complaints Musculoskeletal: Musculoskeletal: Reports no additional musculoskeletal complaints Integumentary/Breasts: Skin/Breast: Reports system reviewed and no additional complaints, except as docu Neurologic: Reports system reviewed and no additional complaints, except as documented Endocrine: Endocrine: Reports no additional endocrine complaints Hematologic/Lymphatic: Hematologic/Lymphatic: Reports no additional hematologic/lymphatic complaints Allergic/Immunologic: Allergic/Immunologic: Reports no additional allergic/immunologic complaints Exam Const: General: comfortable and no acute distress Other: Well-developed well-nourished white male and appears to be in good spirits comfortable cooperative not in any distress HENMT: Mouth: Yes moist mucous membranes Eyes: Sclera: sclerae normal Pupils: Equal, round and reactive pupils present Neck: Neck: supple and no JVD Other: Carotid pulses are intact bilaterally no are no audible bruits over the neck Resp: Effort & Inspection: normal respiratory effort Auscultation: clear to auscultation bilaterally Cardio: Rate: regular rate Rhythm: regular rhythm Heart sounds: S1 normal heart sound present, S2 normal heart sound present, no gallops and no murmurs GI: Auscultation: normal bowel sounds Skin: General skin exam: normal color Other: R groin arterial access site free from bleeding, hematoma, bruit. Neuro: Cranial nerves: Yes Equal, round and reactive pupils present Other: Alert and oriented x3 normal cognition Extrem: Other: Adequate pulses throughout all 4 limbs no edema Objective Data Vital Signs Vital Signs: Vital Signs - 24 hr 03/24/22 09:55 03/24/22 11:48 03/24/22 11:15 Temperature 36.2 C L Pulse Rate 67 72 Respiratory Rate 20 Blood Pressure 110/77 Pulse Oximetry 96 Oxygen Delivery Room Air 03/24/22 13:39 03/24/22 13:45 03/24/22 14:00 Temperature Pulse Rate 71 65 66 Respiratory Rate 12 20 20 Blood Pressure 114/97 H 118/84 128/84 Pulse Oximetry 97 96 98 Oxygen Delivery Room Air Room Air Room Air 03/24/22 14:15 03/24/22 14:30 03/24/22 15:00 Temperature Pulse Rate 66 65 60 Respiratory Rate 11 L 18 14 Blood Pressure 137/97 H 117/72 144/88 H Pulse Oximetry 97 97 96 Oxygen Delivery Room Air Room Air Room Air 03/24/22 15:35 03/24/22 15:40 03/24/22 15:45 Temperature Pulse Rate 68 68 70 Respi
--- NOTE | 2022-03-25 12:17 | PM.DS ---
DS: Admitting Diagnosis Discharge Date 03/25/2022 Admitting Diagnosis chest pain DS: Discharge Diagnosis Discharge Diagnosis (1) Non-ST elevation myocardial infarction (NSTEMI): Code(s): I21.4 - Non-ST elevation (NSTEMI) myocardial infarction Status: Acute (2) Hypertension: Code(s): I10 - Essential (primary) hypertension Status: Acute (3) Dyslipidemia: Code(s): E78.5 - Hyperlipidemia, unspecified Status: Acute (4) Laryngopharyngeal reflux: Code(s): K21.9 - Gastro-esophageal reflux disease without esophagitis Status: Acute (5) Tobacco dependence: Code(s): F17.200 - Nicotine dependence, unspecified, uncomplicated Status: Acute Plan The patient presented to the ED for evaluation of intermittent substernal heaviness over the past 1 week. Labs, imaging, reports, and EKG were all personally reviewed. Initial troponin was elevated and he has been transferred to [place] for close monitoring and Cardiology consultation. Dr. Ontiveros was notified by the nursing grocery supervisor. He was given aspirin at the outside facility as well as a dose of Lovenox. Continue Lovenox 1 milligram/kilogram b.i.d.. Start metoprolol tartrate 25 mg b.i.d. Continue rosuvastatin. He will be NPO after midnight in anticipation of further workup. Troponins will be trended to peak. He has no chest pain at this time but he was instructed to let the nurses know ALEJANDRO if he once again starts to have discomfort. Blood pressures will be monitored closely; they were elevated on arrival to the outside facility but have improved somewhat. Continue antihypertensives at current doses. Continue omeprazole which he takes for silent reflux; he does not think his discomfort is related to reflux. Smoking cessation is imperative. He declines the need for nicotine patch. 03/24/2022 interval history: 57-year-old male presented with complaint of chest pain was found to have a non STEMI and taken to the cardiac calibration laboratory technician today it showed patient had occlusion of a coronary artery and it was stented, patient also has preserved LV function, patient started on dual anti-platelet therapy, will continue to monitor patient will be seen by teacher public health and further recommendation to follow. DS: Summary Hospital Course Reason for hospitalization: Chest pain. Narrative: This is a very pleasant 57-year-old male smoker with hypertension, dyslipidemia, and laryngopharyngeal reflux who presented to the emergency department at the [facility] earlier this morning for evaluation of chest pain. Patient provides the following history. He reports intermittent episodes of nonradiating, self-limiting substernal chest heaviness over the past 1 week. He does not necessarily see a pattern as to when it occurs; it can happen simply while sitting down. However last while at work he had an episode while he was walking which seemed to improve with rest. He denies associated symptoms but does mention that with the aforementioned walk he felt short of breath but goes on to say that he blames that on the frigid air. He denies near-syncope, syncope, sweats, nausea, and vomiting. No palpitations, sensations of racing heart, pleuritic pain, orthopnea, paroxysmal nocturnal dyspnea, or lower extremity edema. He denies epigastric/abdominal pain and GERD symptoms (reports history of silent reflux for which he takes omeprazole). On arrival to the ED his blood pressure was 148/98. EKG reportedly showed no ST segment elevation or depression however I do not have a copy of that for personal review. CBC and CMP were pretty unremarkable. High sensitivity troponin was elevated at 3130.5. He was given a dose of sublingual nitroglycerin without much benefit. GI cocktail helped perhaps somewhat. He has since been transferred to [place] in this setting for further workup and Cardiology consultation. At the time my evaluation he is resting comfortably and has no specific com
== END 2022-03-25 13:15 | disposition home or self-care (01) | DRG 247 ==
PROVIDERS: Physician Assistant; Specialist; Admitting Provider Student in an Organized Health Care Education/Training Program; PCP Internal Medicine; Visit Provider Family Medicine
PROC: 4A023N7 Measurement of Cardiac Sampling and Pressure, Left Heart, Percutaneous Approach (ICD-10-PCS; CPT 93452; principal; 2022-03-24 13:00)
PROC: 027035Z Dilation of Coronary Artery, One Artery with Two Drug-eluting Intraluminal Devices, Percutaneous Approach (ICD-10-PCS; CPT 92928; 2022-03-24 13:00)
DX: I21.4 Non-ST elevation (NSTEMI) myocardial infarction (principal); I25.10 Atherosclerotic heart disease of native coronary artery without angina pectoris; I10 Essential (primary) hypertension; E78.5 Hyperlipidemia, unspecified; K21.9 Gastro-esophageal reflux disease without esophagitis; F17.210 Nicotine dependence, cigarettes, uncomplicated
CPT/HCPCS: 36415; 80048; 80061; 82550; 83735; 84484; 93005; 93306; 93458; 96372; A9270; C1725; C1769; C1874; C1887; C1894; C9600; G0378; G0379; J0583; J1644; J1650; J2250; J3010; J7030; J7040

== ENCOUNTER 2022-05-20 09:26 | Outpatient (CLI) | payer OTHER, SELFPAY ==
[2022-05-20 09:38] LABS: Basophils Absolute Auto 0.08 K/mm3 (0.00-0.10); Eosinophils Absolute Auto 0.25 K/mm3 (0.02-0.50); Hematocrit 44.1 % (40.0-54.0); Hemoglobin 15.1 g/dL (14.0-18.0); Immature Granulocyte Absolute 0.03 K/mm3 (0.00-0.00); Immature Granulocyte Percent A 0.4 % (0.0-0.0); Lymphocytes Absolute Auto 1.84 K/mm3 (1.10-4.50); Lymphocytes Percent Auto 22.3 % (18.0-42.0); Mean Corpuscular HGB Conc 34.2 g/dL (32.0-36.0); Mean Corpuscular Volume 93.4 fL (78.0-102.0); Mean Platelet Volume 11.7 fl (8.7-11.0); Monocytes Absolute Auto 0.84 K/mm3 (0.10-0.90); Monocytes Percent Auto 10.2 % (2.0-11.0); Neutrophils Absolute Auto 5.2 K/mm3 (1.7-7.2); Neutrophils Percent Auto 63.1 % (50.0-70.0); Platelet Count Result 216 K/mm3 (150-420); Red Blood Count 4.72 M/mm3 (4.70-6.10); White Blood Count 8.3 K/mm3 (4.8-10.8)
[2022-05-20 09:39] LABS: Appearance Urine Clear (Clear); Bilirubin Urine Negative (Negative); Blood Urine Negative (Negative); Color Urine Light Yellow (Yellow); Glucose Urine UA Negative (Negative); Ketones Urine Negative (Negative); Leukocyte Esterase Ur Negative (Negative); Nitrate Urine Negative (Negative); Protein Urine Negative (Negative); Urobilinogen Urine 0.2 mg/dL (0.2-1.0); pH Urine 6.5 (5.0-8.0)
[2022-05-20 09:44] LABS: Add Urine Microscopic? NO
[2022-05-20 09:47] LABS: Hemoglobin A1C 6.5 % (<5.7)
[2022-05-20 10:19] LABS: Alanine Aminotransferase 32 U/L (16-63); Albumin Level 4.3 g/dL (3.4-5.0); Alkaline Phosphatase 55 U/L (46-116); Anion Gap 13 mmol/L (8-16); Aspartate Amino Transferase 18 U/L (15-37); Bilirubin,Total 0.2 mg/dL (0.00-1.00); Blood Urea Nitrogen 15 mg/dL (7-18); Calcium 9.1 mg/dL (8.5-10.1); Carbon Dioxide 25 mmol/L (21-32); Chloride 106 mmol/L (98-108); Cholesterol 170 mg/dL (0-200); Creatine Kinase 95 U/L (39-308); Estimated Glomerular Filt Rate > 60; Glucose 116 mg/dL (70-99); HDL Direct 60 mg/dL (40-60); LDL Cholesterol Calculated 93 mg/dL (<130); Osmolality Calculated 299 mOsm/kg (285-295); Potassium 4.5 mmol/L (3.5-5.1); Sodium 144 mmol/L (136-145); Total Protein 7.3 g/dL (6.4-8.2); Triglycerides 84 mg/dL (0-150)
== END 2022-05-20 09:27 | disposition home or self-care (01) ==
LOC: CHSLAB 09:28
PROVIDERS: PCP Internal Medicine; Visit Provider Internal Medicine
DX: K21.9 Gastro-esophageal reflux disease without esophagitis (principal); E78.2 Mixed hyperlipidemia; I10 Essential (primary) hypertension; R73.01 Impaired fasting glucose
CPT/HCPCS: 36415; 80053; 80061; 81003; 82550; 83036; 85025

== ENCOUNTER 2022-07-03 09:01 | Outpatient (CLI) | payer OTHER, SELFPAY ==
--- NOTE | ~2022-07-03 | XR_ITS ---
Right Shoulder Technique: AP and scapular Y views were obtained. Clinical History: Pain Findings: No fracture or dislocation is seen. Osseous alignment is anatomic. The glenohumeral and acr omioclavicular joint spaces are preserved. Soft tissues are unremarkable. Impression: Unremarkable right shoulder radiographs. Reviewed, dictated and finalized at [facility]. Impression: Unremarkable right shoulder radiographs.
--- NOTE | ~2022-07-03 | XR_ITS ---
XR knee RT 3V 07/03/2022 09:32 Indication: Bilateral knee pain. Arthritis. Procedure: 3 views right knee Comparison: No prior studies for comparison. Findings: Moderate osteoarthritis of the right knee. No significant joint effusion. No acute fracture or traumatic malalignment. No significant soft tissue abnormality. No foreign bodies. Impression: 1: Moderate osteoarthritis of the right knee. Reviewed, dictated and finalized at [facility]. Impression: 1: Moderate osteoarthritis of the right knee.
--- NOTE | ~2022-07-03 | XR_ITS ---
Left Shoulder Technique: AP and scapular Y views were obtained. Clinical History: Pain Findings: No fracture or dislocation is seen. Osseous alignment is anatomic. The glenohumeral and acr omioclavicular joint spaces are preserved. Soft tissues are unremarkable. Impression: Unremarkable left shoulder radiographs. Reviewed, dictated and finalized at [facility]. Impression: Unremarkable left shoulder radiographs.
--- NOTE | ~2022-07-03 | XR_ITS ---
Left Knee Technique: AP, lateral, and sunrise views were obtained. Clinical History: Pain Findings: No fracture or dislocation is seen. Osseous alignment is anatomic. Mild degenerative change of the medial compartment noted. Soft tissues are unremarkable. No joint effusion is seen. Impression: Mild medial compartment degenerative change. Reviewed, dictated and finalized at [facility]. Impression: Mild medial compartment degenerative change.
== END 2022-07-03 09:02 | disposition home or self-care (01) ==
LOC: CHSIMG 09:03
PROVIDERS: PCP Internal Medicine; Visit Provider Internal Medicine
DX: M25.511 Pain in right shoulder (principal); M25.512 Pain in left shoulder; M25.562 Pain in left knee; M25.561 Pain in right knee; M17.0 Bilateral primary osteoarthritis of knee
CPT/HCPCS: 73030; 73562

== ENCOUNTER 2022-08-11 08:52 | Outpatient (RCR) | payer OTHER, SELFPAY ==
--- NOTE | 2022-08-11 09:57 | PTOPEVAL1 ---
Assessment and note entered by JT File, PT Evaluation Information Assessment Status Evaluation Diagnosis bilateral knee pain, bilateral shoulder pain Onset 03/18/22 Subjective Information patient reports he has had problems with his knees for some time. he reports he has a tear in the L knee. he reports he used to walk a lot, but since being off work he has felt worse. he reports he is able to walk about 1 mile. he reports anything over that, he has issues with his knees and chest. he reports he is no longer able to kneel. he reports he has been on medical leave since his heart attack on 03/23/22. he reports he works for the [employer]. he reports he has increased pain in the knees with turning, and moving things on the floor with his feet. he reports he has had xrays here at the hospital. he reports he believes he has moderate OA in both knees and shoulders. he reports increased overhead lifting for an hour or so will cause pain in the shoulders. 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 he reports this caused stiffness in his wrist that was on the steeing wheel. he reports he would like to be able walk longer distances. he reports due to the heart issue he does not think he will be able to make it back to work. Reported Pain Level Pain Score 0,0: Self Report Assessment PT Clinical Summary mr. nguyen is a 57 yo man who presents to skilled PT services for evaluation and treatment of bilateral shoulder and knee pain. he presents with signs and symptoms of bilateral knee OA, and bilateral shoulder RTC syndrome. he presents with deficits in proxiaml UE and LE strength, activity endurance, and posture. he would benefit from continued skilled PT to address his objective/ functional defiits to achieve his prior level functional activity performance and quality of life. Plan of Care Interventions Electrical Stimulation,Gait Training,Hot Pack/Cold Pack,Manual Therapy,Neuro Re-education,Patient/ Caregiver Educati,Therapeutic Activities, Therapeutic Exercise PT Services Indicated Yes Treatment Frequency and 3x weekly for 12 visits Duration These treatments will address the objective and functional deficits as defined above. The patient will be advanced safely and appropriately in order for the patient to progress towards his/her prior level of function. Additional exercises will be int
--- NOTE | 2022-08-11 09:57 | OPREHPOC ---
Outpatient Therapy Plan of Care This is a Multidisciplinary Plan of Care that may contain components documented by all disciplines (PT, OT, and ST.) PT Problem 1 PT Problem #1 Knowledge Deficit PT Goal 1 Goal 1. independent and compliant with HEP to improve tolerance for continued skilled PT and exercises. Target Visit 6 PT Problem 2 PT Problem #2 Pain PT Goal 1 Goal 1. patient to report no more than 2/10 pain in the bilateral knees and shoulders to mprove functional activity performance and quality of life. Target Visit 12 PT Problem 3 PT Problem #3 Impaired Strength PT Goal 1 Goal 1. improve bilateral hip strength to 4+/5 or better overall 2. improve R knee extension to 5/5 3. improve bilateral shoulder strength to 4+/5 or better overall Target Visit 12 PT Problem 4 PT Problem #4 Impaired Functional Mobil PT Goal 1 Goal 1. patient to ambulates 1200ft or more in 6 minutes without rest or AD 2. patient to display improved shoulder posture with retracted scapulae 3. LEFS and quick dash to each display less than 30% functional deficits 4. patient to ambulate 3 miles at home without rest or increased pain 5. patient to lift 10lbs to shoulder level shelf x10 bilat without compensation Target Visit 12
--- NOTE | 2022-09-05 17:23 | PTOPPROG ---
Assessment and note entered by JT File, PT Evaluation Information Assessment Status Progress Diagnosis bilateral knee pain, bilateral shoulder pain Onset 03/18/22 Subjective Information patient reports he has a bit of soreness in the R shoulder today, but reports in general the knees are feeling better. Assessment PT Clinical Summary mr. nguyen presents to skilled PT services for his 10th skilled therapy visit. as of this date, he continues to present with pain in the R knee and R shoulder most. he has made progress in HEP performance and strength. however, he still lacks full goals achievement and return to prior level functional performance. continued skilled PT is indicated to further progress towards achievement of goals/return to prior level functional activity performance/quality of life. Plan of Care Interventions Gait Training,Manual Therapy,Neuro Re-education, Patient/Caregiver Educati,Therapeutic Activities, Therapeutic Exercise PT Services Indicated Yes Treatment Frequency and continue skilled PT for 2 more visits per his Duration initial evaluation These treatments will address the objective and functional deficits as defined above. The patient will be advanced safely and appropriately in order for the patient to progress towards his/her prior level of function. Additional exercises will be introduced and as well as a comprehensive home exercise program upon discharge, if needed, ?to ensure carryover of functional gains achieved in the clinic. This treatment plan has been reviewed and agreement upon by the patient.
--- NOTE | 2022-09-05 17:23 | OPREHPOC ---
Outpatient Therapy Plan of Care This is a Multidisciplinary Plan of Care that may contain components documented by all disciplines (PT, OT, and ST.) PT Problem 1 PT Problem #1 Knowledge Deficit PT Goal 1 Goal 1. independent and compliant with HEP to improve tolerance for continued skilled PT and exercises. Target Visit 6 Progress Met PT Problem 2 PT Problem #2 Pain PT Goal 1 Goal 1. patient to report no more than 2/10 pain in the bilateral knees and shoulders to mprove functional activity performance and quality of life. Target Visit 12 Progress Not Met PT Problem 3 PT Problem #3 Impaired Strength PT Goal 1 Goal 1. improve bilateral hip strength to 4+/5 or better overall 2. improve R knee extension to 5/5 3. improve bilateral shoulder strength to 4+/5 or better overall Target Visit 12 Progress Partially Met PT Problem 4 PT Problem #4 Impaired Functional Mobil PT Goal 1 Goal 1. patient to ambulates 1200ft or more in 6 minutes without rest or AD 2. patient to display improved shoulder posture with retracted scapulae 3. LEFS and quick dash to each display less than 30% functional deficits 4. patient to ambulate 3 miles at home without rest or increased pain 5. patient to lift 10lbs to shoulder level shelf x10 bilat without compensation Target Visit 12 Progress Not Met
--- NOTE | 2022-09-18 09:57 | PTOPDC ---
Assessment and note entered by Nuzhat Small DPT Evaluation Information Assessment Status Re-evaluation Diagnosis bilateral knee pain, bilateral shoulder pain Onset 03/18/22 Subjective Information Patient reports that pain is about the same. He does report that he is a little bit stronger since start of PT. He reports he can walk a mile with no issues. He reports he has applied for disability due to heart issues. He reports he is independent with HEP and ready for DC at this time Reported Pain Level Pain Score 4,6: Self Report Assessment PT Clinical Summary Patient was seen for 12 visits of skilled PT. Patient demonstrates improvment in knee ROM and B UE and LE strength but continues to have pain with prolonged activitiy. Patient is limited in activity levels due to previous heart attack. He reports he has noticed increased UE strength with house hold tasks. Patient reports he is independent and is ready to DC at this time. Plan of Care PT Services Indicated No
== END 2022-09-18 11:01 | disposition home or self-care (01) ==
LOC: CHSPT 08:52
PROVIDERS: PCP Internal Medicine; Visit Provider Internal Medicine
DX: M25.511 Pain in right shoulder (principal); M25.512 Pain in left shoulder; M25.561 Pain in right knee; M25.562 Pain in left knee
CPT/HCPCS: 97014; 97110; 97150; 97161; 97530; G0283

== ENCOUNTER 2022-09-16 12:21 | Outpatient (CLI) | payer OTHER, SELFPAY ==
--- NOTE | ~2022-09-16 | CT_ITS ---
EXAMINATION: CT lung screening DATE: 09/16/2022 12:40 INDICATION: Personal history of tobacco dependence TECHNIQUE: Computed tomography (CT) of the chest was performed without intravenous contrast. The dose -length product was 242.32 mGy-cm. Automated exposure control and iterative reconstruction technique were employed. COMPARISON: Chest dated 03/23/2022 FINDINGS: No significant pleural or pericardial effusion. Visualized aspects of the upper abdomen are unremarkable. No thoracic lymphadenopathy. No significant vascular abnormality. Heart size normal. N o endobronchial lesions. No pneumothorax. No focal airspace consolidation. No pulmonary nodules or ma sses. Mild thoracic spondylosis. IMPRESSION: 1. Lung-RADS category 1: Negative. Continue annual screening with noncontrast low-dose chest CT in 12 months. Reviewed, dictated and finalized at location A. IMPRESSION: 1. Lung-RADS category 1: Negative. Continue annual screening with noncontrast l ow-dose chest CT in 12 months.
== END 2022-09-16 12:22 | disposition home or self-care (01) ==
PROVIDERS: PCP Internal Medicine; Visit Provider Internal Medicine
DX: Z12.2 Encounter for screening for malignant neoplasm of respiratory organs (principal); Z87.891 Personal history of nicotine dependence
CPT/HCPCS: 71271

== ENCOUNTER 2022-11-26 08:38 | Outpatient (CLI) | payer OTHER, SELFPAY ==
[2022-11-26 09:04] LABS: Basophils Absolute Auto 0.06 K/mm3 (0.00-0.10); Basophils Percent Auto 0.6 % (0.0-1.0); Hematocrit 44.9 % (40.0-54.0); Hemoglobin 15.3 g/dL (14.0-18.0); Immature Granulocyte Absolute 0.04 K/mm3 (0.00-0.00); Immature Granulocyte Percent A 0.4 % (0.0-0.0); Lymphocytes Absolute Auto 1.65 K/mm3 (1.10-4.50); Lymphocytes Percent Auto 16.7 % (18.0-42.0); Mean Corpuscular HGB Conc 34.1 g/dL (32.0-36.0); Mean Corpuscular Hemoglobin 31.9 pg (27.0-31.0); Mean Corpuscular Volume 93.7 fL (78.0-102.0); Mean Platelet Volume 11.3 fl (8.7-11.0); Monocytes Absolute Auto 0.86 K/mm3 (0.10-0.90); Monocytes Percent Auto 8.7 % (2.0-11.0); Neutrophils Percent Auto 70.6 % (50.0-70.0); Platelet Count Result 175 K/mm3 (150-420); Red Blood Count 4.79 M/mm3 (4.70-6.10); Red Cell Distribution Width 12.8 % (11.6-14.4); White Blood Count 9.9 K/mm3 (4.8-10.8)
[2022-11-26 09:21] LABS: Appearance Urine Clear (Clear); Bilirubin Urine Negative (Negative); Blood Urine Negative (Negative); Color Urine Light Yellow (Yellow); Glucose Urine UA Negative (Negative); Ketones Urine Negative (Negative); Leukocyte Esterase Ur Negative (Negative); Nitrate Urine Negative (Negative); Protein Urine Negative (Negative); Urobilinogen Urine 0.2 mg/dL (0.2-1.0)
[2022-11-26 09:25] LABS: Hemoglobin A1C 6.1 % (<5.7)
[2022-11-26 09:27] LABS: Add Urine Microscopic? NO
[2022-11-26 09:38] LABS: Creatinine Urine 38.98 mg/dL (40-278); MALB Creatinine Ratio 33.3 mg/g (0-30); Microalbumin Urine Random < 13.0 mg/L
[2022-11-26 09:49] LABS: Alanine Aminotransferase 25 U/L (16-63); Albumin Level 4.4 g/dL (3.4-5.0); Alkaline Phosphatase 60 U/L (46-116); Anion Gap 11 mmol/L (8-16); Aspartate Amino Transferase 12 U/L (15-37); Bilirubin,Total 0.4 mg/dL (0.00-1.00); Blood Urea Nitrogen 13 mg/dL (7-18); Calcium 9.6 mg/dL (8.5-10.1); Carbon Dioxide 24 mmol/L (21-32); Chloride 103 mmol/L (98-108); Cholesterol 168 mg/dL (0-200); Creatine Kinase 105 U/L (39-308); Estimated Glomerular Filt Rate > 60; Glucose 110 mg/dL (70-99); HDL Direct 50 mg/dL (40-60); LDL Cholesterol Calculated 99 mg/dL (<130); Osmolality Calculated 287 mOsm/kg (285-295); Potassium 4.2 mmol/L (3.5-5.1); Prostate Specific Antigen 1.8 ng/mL (< OR = 4.0); Sodium 138 mmol/L (136-145); Total Protein 7.1 g/dL (6.4-8.2); Triglycerides 93 mg/dL (0-150)
== END 2022-11-26 08:39 | disposition home or self-care (01) ==
LOC: CHSLAB 08:40
PROVIDERS: PCP Internal Medicine; Visit Provider Internal Medicine
DX: Z00.00 Encounter for general adult medical examination without abnormal findings (principal); I10 Essential (primary) hypertension; E11.9 Type 2 diabetes mellitus without complications; E78.2 Mixed hyperlipidemia
CPT/HCPCS: 36415; 80053; 80061; 81003; 82043; 82550; 83036; 84153; 85025; G0103

== ENCOUNTER 2023-05-07 11:03 | Outpatient (CLI) | payer OTHER, SELFPAY ==
[2023-05-07 11:25] LABS: Basophils Absolute Auto 0.05 K/mm3 (0.00-0.10); Basophils Percent Auto 0.7 % (0.0-1.0); Eosinophils Absolute Auto 0.21 K/mm3 (0.02-0.50); Hematocrit 42.6 % (40.0-54.0); Hemoglobin 14.5 g/dL (14.0-18.0); Immature Granulocyte Absolute 0.01 K/mm3 (0.00-0.00); Immature Granulocyte Percent A 0.1 % (0.0-0.0); Lymphocytes Absolute Auto 2.01 K/mm3 (1.10-4.50); Lymphocytes Percent Auto 28.6 % (18.0-42.0); Mean Corpuscular Hemoglobin 30.9 pg (27.0-31.0); Mean Corpuscular Volume 90.8 fL (78.0-102.0); Mean Platelet Volume 11.1 fl (8.7-11.0); Monocytes Absolute Auto 0.77 K/mm3 (0.10-0.90); Neutrophils Absolute Auto 3.97 K/mm3 (1.70-7.20); Neutrophils Percent Auto 56.6 % (50.0-70.0); Platelet Count Result 158 K/mm3 (150-420); Red Blood Count 4.69 M/mm3 (4.70-6.10)
[2023-05-07 11:27] LABS: Appearance Urine Clear (Clear); Bilirubin Urine Negative (Negative); Blood Urine Negative (Negative); Color Urine Light Yellow (Yellow); Glucose Urine UA Negative (Negative); Ketones Urine Negative (Negative); Leukocyte Esterase Ur Negative (Negative); Nitrate Urine Negative (Negative); Protein Urine Negative (Negative); Specific Grav Ur <= 1.005 (1.010-1.020); Urobilinogen Urine 0.2 mg/dL (0.2-1.0)
[2023-05-07 11:42] LABS: Add Urine Microscopic? NO
[2023-05-07 11:54] LABS: Hemoglobin A1C 5.7 % (<5.7)
[2023-05-07 14:08] LABS: Alanine Aminotransferase 28 U/L (16-63); Albumin Level 4.4 g/dL (3.4-5.0); Alkaline Phosphatase 48 U/L (46-116); Anion Gap 11 mmol/L (8-16); Aspartate Amino Transferase 14 U/L (15-37); Bilirubin,Total 0.6 mg/dL (0.00-1.00); Blood Urea Nitrogen 14 mg/dL (7-18); Calcium 8.7 mg/dL (8.5-10.1); Carbon Dioxide 26 mmol/L (21-32); Chloride 102 mmol/L (98-108); Cholesterol 165 mg/dL (0-200); Creatine Kinase 86 U/L (39-308); Estimated Glomerular Filt Rate > 60; Glucose 89 mg/dL (70-99); HDL Direct 56 mg/dL (40-60); LDL Cholesterol Calculated 82 mg/dL (<130); Osmolality Calculated 287 mOsm/kg (285-295); Potassium 3.8 mmol/L (3.5-5.1); Sodium 139 mmol/L (136-145); Triglycerides 136 mg/dL (0-150)
== END 2023-05-07 11:04 | disposition home or self-care (01) ==
LOC: CHSLAB 11:06
PROVIDERS: PCP Internal Medicine; Visit Provider Internal Medicine
DX: I10 Essential (primary) hypertension (principal); E78.2 Mixed hyperlipidemia; E11.59 Type 2 diabetes mellitus with other circulatory complications; I25.10 Atherosclerotic heart disease of native coronary artery without angina pectoris
CPT/HCPCS: 36415; 80053; 80061; 81003; 82550; 83036; 85025

== ENCOUNTER 2023-11-16 10:25 | Outpatient (CLI) | payer OTHER, SELFPAY ==
[2023-11-16 10:42] LABS: Add Urine Microscopic? NO; Appearance Urine Clear (Clear); Basophils Absolute Auto 0.06 K/mm3 (0.00-0.10); Basophils Percent Auto 0.8 % (0.0-1.0); Bilirubin Urine Negative (Negative); Blood Urine Negative (Negative); Color Urine Light Yellow (Yellow); Eosinophils Absolute Auto 0.22 K/mm3 (0.02-0.50); Eosinophils Percent Auto 3.1 % (1.0-6.0); Glucose Urine UA Negative (Negative); Hematocrit 44.1 % (40.0-54.0); Hemoglobin 15.3 g/dL (14.0-18.0); Immature Granulocyte Absolute 0.03 K/mm3 (0.00-0.00); Immature Granulocyte Percent A 0.4 % (0.0-0.0); Ketones Urine Negative (Negative); Leukocyte Esterase Ur Negative (Negative); Lymphocytes Absolute Auto 2.16 K/mm3 (1.10-4.50); Mean Corpuscular HGB Conc 34.7 g/dL (32-36); Mean Corpuscular Hemoglobin 31.5 pg (27.0-31.0); Mean Corpuscular Volume 90.7 fL (78.0-102.0); Mean Platelet Volume 10.8 fl (8.7-11.0); Monocytes Absolute Auto 0.74 K/mm3 (0.10-0.90); Monocytes Percent Auto 10.3 % (2.0-11.0); Neutrophils Absolute Auto 3.98 K/mm3 (1.70-7.20); Neutrophils Percent Auto 55.4 % (50.0-70.0); Nitrate Urine Negative (Negative); Platelet Count Result 185 K/mm3 (150-420); Protein Urine Negative (Negative); Red Blood Count 4.86 M/mm3 (4.70-6.10); Red Cell Distribution Width 12.8 % (11.6-14.4); Specific Grav Ur 1.015 (1.010-1.020); Urobilinogen Urine 0.2 mg/dL (0.2-1.0); White Blood Count 7.2 K/mm3 (4.8-10.8); pH Urine 5.5 (5.0-8.0)
[2023-11-16 11:38] LABS: Alanine Aminotransferase 31 U/L (16-63); Alkaline Phosphatase 70 U/L (46-116); Anion Gap 13 mmol/L (4-12); Aspartate Amino Transferase 16 U/L (15-37); Bilirubin,Total 0.5 mg/dL (0.00-1.00); Blood Urea Nitrogen 14 mg/dL (7-18); Calcium 8.7 mg/dL (8.5-10.1); Carbon Dioxide 25 mmol/L (21-32); Chloride 99 mmol/L (98-108); Cholesterol 169 mg/dL (0-200); Creatine Kinase 91 U/L (39-308); Estimated Glomerular Filt Rate > 60; Glucose 103 mg/dL (70-99); HDL Direct 50 mg/dL (40-60); LDL Cholesterol Calculated 84 mg/dL (<130); NT Pro B Type Natriuretic Pept 20 pg/mL (0-125); Osmolality Calculated 284 mOsm/kg (285-295); Prostate Specific Antigen 2.1 ng/mL (< OR = 4.0); Sodium 137 mmol/L (136-145); Total Protein 6.9 g/dL (6.4-8.2); Triglycerides 176 mg/dL (0-150)
== END 2023-11-16 10:26 | disposition home or self-care (01) ==
PROVIDERS: PCP Internal Medicine; Visit Provider Internal Medicine
DX: E11.59 Type 2 diabetes mellitus with other circulatory complications (principal); I10 Essential (primary) hypertension; E78.2 Mixed hyperlipidemia
CPT/HCPCS: 36415; 80053; 80061; 81003; 82550; 83036; 83880; 84153; 85025; G0103

== ENCOUNTER 2023-11-30 13:30 | Outpatient (CLI) | payer OTHER, SELFPAY ==
--- NOTE | ~2023-11-30 | CT_ITS ---
CT Scan of the Chest without Contrast: Clinical Indication: Lung cancer screening, nicotine dependence Technique: Contiguous sections were acquired throughout the chest without intravenous contrast. Dose reduction technique was used on this scan by utilizing automated exposure control and iterative recon struction technique. The dose-length product (DLP) was 169.22 mGy-cm. COMPARISON: 09/16/2022 Findings: There is no evidence of any significant mediastinal, hilar or axillary lymphadenopathy. The mediastin al soft tissues appear normal. There is no evidence of pleural or pericardial effusion. The lungs are clear, several small calcified left basilar granuloma. Images through the upper abdomen reveal no abnormalities. Impression: Lung RADS 2: Benign appearance. 12 month follow-up screening CT advised. Reviewed, dictated and finalized at location . Impression: Lung RADS 2: Benign appearance. 12 month follow-up screening CT advised.
== END 2023-11-30 13:31 | disposition home or self-care (01) ==
LOC: CHSIMG 13:32
PROVIDERS: PCP Internal Medicine; Visit Provider Internal Medicine
DX: Z12.2 Encounter for screening for malignant neoplasm of respiratory organs (principal); Z87.891 Personal history of nicotine dependence
CPT/HCPCS: 71271

== ENCOUNTER 2023-12-14 07:58 | Outpatient (CLI) | payer OTHER, SELFPAY ==
--- NOTE | ~2023-12-14 | US_ITS ---
EXAMINATION: US carotid duplex BI DATE: 12/14/2023 08:33 INDICATION: Right carotid bruit TECHNIQUE: Grayscale, color Doppler, and pulsed Doppler images of the cervical carotid arteries were obtained. The degree of vessel stenosis is placed in one of the following categories: normal, <50%, 5 0-69%, >=70% but less than near-occlusion, near-occlusion, or total occlusion. Note that percent sten osis relative to normal distal artery lumen diameter is indirectly measured from velocity measurement s as described by Malick, et al. Radiology 2003; 229:340-346. Notes: Normal: Peak systolic velocity <125 centimeters/sec and no plaque <50%. Peak systolic velocity <125 ( EDV <40; ICA/CCA PSV ratio <2.0; used these factors only a tandem lesions or low cardiac output or co ntralateral disease) 50-69 %: PSV 125-230 (EDV 40-100; ratio 2-4) >= 70% but less than near occlusion: PSV greater than 230 (EDV > 100; ratio> 4.0) Near Occlusion: PSV that is variable; markedly narrowed lumen Occlusion: Absent flow on color/spectral Doppler and no lumen on jones scale. COMPARISON: None. FINDINGS: RIGHT: The right common carotid artery (CCA) peak systolic velocity (PSV) is 83 cm/s. The right internal car otid artery (ICA) PSV is 80 cm/s. The right ICA end-diastolic velocity (EDV) is 41 cm/s. The right IC A/CCA PSV ratio is 1.0. The external carotid artery (ECA) PSV is 81 cm/s. There is antegrade flow in the right vertebral artery. LEFT: The left CCA PSV is 86 cm/s. The left ICA PSV is 81 cm/s. The left ICA EDV is 23 cm/s. The left ICA/C CA PSV ratio is 0.9. The ECA PSV is 90 cm/s. There is antegrade flow in the left vertebral artery. IMPRESSION: 1. Less than 50% stenosis in the right internal carotid artery by sonographic criteria. 2. Less than 50% stenosis in the left internal carotid artery by sonographic criteria. Reviewed, dictated and finalized at location B. IMPRESSION: 1. Less than 50% stenosis in the right internal carotid artery by sonographic c mario. 2. Less than 50% stenosis in the left internal carotid artery by sonographic cr luis.
== END 2023-12-14 07:59 | disposition home or self-care (01) ==
LOC: CHSIMG 08:00
PROVIDERS: PCP Internal Medicine; Visit Provider Internal Medicine
DX: I65.23 Occlusion and stenosis of bilateral carotid arteries (principal); R09.89 Other specified symptoms and signs involving the circulatory and respiratory systems
CPT/HCPCS: 93880

== ENCOUNTER 2024-05-21 10:04 | Outpatient (CLI) | payer OTHER, SELFPAY ==
--- OUTSIDE RECORDS SUMMARY | 2024-05-21 10:07 | XMS_ITS | Clinical Summary ---
Author Organization [facility] [place] [address] [facility] [address] [place] [address] Care Team Providers Care Tape Editor Name Role Phone Sara Suresh MD Primary Care Provider [phone] Sara Suresh MD Unavailable [phone] Allergies Active Allergy Reactions Criticality Noted Date Comments Ticagrelor Rash Medium 04/01/2022 Medications rosuvastatin (CRESTOR) 20 mg tablet Take 1 tablet (20 mg total) by mouth daily Active amLODIPine (NORVASC) 10 mg tablet Take 1 tablet (10 mg total) by mouth daily Active pantoprazole DR (PROTONIX) 40 mg EC tablet Take 1 tablet (40 mg total) by mouth daily Active aspirin 81 mg enteric coated tablet Take 1 tablet (81 mg total) by mouth daily Active nitroglycerin (NITROSTAT) 0.[address] 1 tablet (0.4 mg total) under the tongue every 5 (five) minutes as needed for chest pain Active sildenafiL (VIAGRA) 100 mg tablet Take 1 tablet (100 mg total) by mouth daily as needed for erectile dysfunction Active metoprolol XL (TOPROL-XL) 50 mg extended release tablet Take 1 tablet (50 mg total) by mouth daily 90 tablet 3 Active losartan (COZAAR) 25 mg tablet Take 0.5 tablets (12.5 mg total) by mouth daily Active Active Problems Problem Noted Date Diagnosed Date History of coronary artery stent placement 06/05 Encounters Date Type Department Care Team Description 04/19/2024 10:15 AM CORROSION CONTROL TECHNICIAN Office Visit [facility] Cardiology [address] [place] [id number] Haider Ontiveros MD History of coronary artery stent placement (Primary Dx) from Last 3 Months Surgical History Surgery Date Site/Laterality Comments APPENDECTOMY Medical History Medical History Date Comments Hypertension Social History Tobacco Use Types Packs/Day Years Used Date Smoking Tobacco: Former Cigarettes Tobacco Cessation:Counseling Given: Not Answered Sex and Gender Information Value Date Recorded Sex Assigned at Not on file Legal Sex Male 11:36 AM CORROSION CONTROL TECHNICIAN Gender Identity Not on file Sexual Orientation Not on file Obstetrics History Last Filed Vital Signs Vital Sign Reading Time Taken Comments Blood Pressure 112/76 04/19/2024 10:11 AM CORROSION CONTROL TECHNICIAN Pulse 86 04/19/2024 10:11 AM CORROSION CONTROL TECHNICIAN Temperature - - Respiratory Rate - - Oxygen Saturation 97% 04/19/2024 10:11 AM CORROSION CONTROL TECHNICIAN Inhaled Oxygen Concentration - - Weight 114.8 kg (253 lb) 04/19/2024 10:11 AM CORROSION CONTROL TECHNICIAN Height 193 cm (6' 4 ) 04/19/2024 10:11 AM CORROSION CONTROL TECHNICIAN Body Mass Index 30.8 04/19/2024 10:11 AM CORROSION CONTROL TECHNICIAN Plan of Treatment Health Maintenance Due Date Last Done Comments Colon Cancer Screening-Colonoscopy 1966 Depression Screening 1966 Hepatitis C Screening 1966 Prostate Cancer Screening-PSA 1966 DTaP/Tdap/Td Vaccine (1 - Tdap) 1977 Hepatitis B Screening 02/19/1984 Regular Well Visit/Exam 18-64 02/19/1984 Zoster Vaccine (1 of 2) 02/19/2016 Influenza Vaccine (#1) 2023 Pneumococcal vaccine <65 Aged Out No longer eligible based on patient's age to complete this topic Procedures Procedure Name Priority Date/Time Associated Diagnosis Comments POCT LIPID PANEL Routine 04/19/2024 11:0 2 AM CORROSION CONTROL TECHNICIAN History of coronary artery stent placement from Last 3 Months Results * POCT lipid panel (04/19/2024 11:02 AM CORROSION CONTROL TECHNICIAN) Cholesterol, POC 176 mg/dL Comment:GLU = 192 HDL, POC 45 mg/dL Triglycerides, POC 229 mg/dL LDL Cholesterol POC 85 mg/dL Chol/HDL Ratio, POC 1.9 Non-HDL Cholesterol, POC 131 mg/dL Cholesterol Total, POC 176 mg/dL Capillary blood 04/19/2024 1 1:02 AM CORROSION CONTROL TECHNICIAN Haider Ontiveros MD POINT OF CARE TEST ORDER BESSIE Final Result from Last 3 Months Insurance CHOICE PLUS Care Teams Tape Editor Relationship Specialty Start Date End Date Sara Suresh MD [address] [place] [address] PCP - General Internal Medicine 03/25/22 Sara Suresh MD [address] [place] [address] Internal Medicine 03/25/22
--- OUTSIDE RECORDS SUMMARY | 2024-05-21 10:07 | XMS_ITS | Referral Summary ---
Author Organization [facility] [place] [address] [facility] [address] Address [address] [place] [address] Care Team Providers Care Maple Products Supervisor Name Role Phone Sara Suresh MD Primary Care Provider [phone] Sara Suresh MD Unavailable [phone] Encounters Date Type Department Care Team Description 04/19/2024 10:15 AM STEEL POURER HELPER Office Visit [facility] Medical [facility] Cardiology [address] [facility] [address] [place] [address] Haider Ontiveros MD History of coronary artery stent placement (Primary Dx) from Last 3 Months Allergies Active Allergy Reactions Criticality Noted Date [...] total) by mouth daily 90 tablet 3 04/13/202 3 Active losartan (COZAAR) 25 mg tablet Take 0.5 tablets (12.5 mg total) by mouth daily Active Active Problems Problem Noted Date Diagnosed Date History of coronary artery stent placement 06/05 Social History Tobacco Use Types Packs/Day Years Used Date Smoking Tobacco: Former Cigarettes Tobacco Cessation:Counseling Given: Not Answered Sex and Gender Information Value Date Recorded Sex Assigned at Not on file Legal Sex Male 11:36 AM STEEL POURER HELPER Gender Identity Not on file Sexual Orientation Not on file Last Filed Vital Signs Vital Sign Reading Time Taken Comments Blood Pressure 112/76 04/19/2024 10:11 AM STEEL POURER HELPER Pulse 86 04/19/2024 10:11 AM STEEL POURER HELPER Temperature - - Respiratory Rate - - Oxygen Saturation 97% 04/19/2024 10:11 AM STEEL POURER HELPER Inhaled Oxygen Concentration - - Weight 114.8 kg (253 lb) 04/19/2024 10:11 AM STEEL POURER HELPER Height 193 cm (6' 4 ) 04/19/2024 10:11 AM STEEL POURER HELPER Body Mass Index 30.8 04/19/2024 10:11 AM STEEL POURER HELPER Plan of Treatment Not on file Procedures Procedure Name Priority Date/Time Associated Diagnosis Comments POCT LIPID PANEL Routine 04/19/2024 11:0 2 AM STEEL POURER HELPER History of coronary artery stent placement from Last 3 Months Results * POCT lipid panel (04/19/2024 11:02 AM STEEL POURER HELPER) Cholesterol, POC 176 mg/dL Comment:GLU = 192 HDL, POC 45 mg/dL Triglycerides, POC 229 mg/dL LDL Cholesterol POC 85 mg/dL Chol/HDL Ratio, POC 1.9 Non-HDL Cholesterol, POC 131 mg/dL Cholesterol Total, POC 176 mg/dL Capillary blood 04/19/2024 1 1:02 AM STEEL POURER HELPER us Haider Ontiveros MD POINT OF CARE TEST ORDER BESSIE Final Result from Last [address] [facility] [employer] [address] CHOICE PLUS CHOICE PLUS CHOICE PLUS Care Teams Maple Products Supervisor Relationship Specialty Start Date End Date Sara Suresh MD [address] [place] [phone] (Work) PCP - General Internal Medicine 03/25/22 Sara Suresh MD [address] [place] [address] Internal Medicine 03/25/22
[2024-05-21 10:22] LABS: Add Urine Microscopic? NO; Appearance Urine Clear (Clear); Bilirubin Urine Negative (Negative); Blood Urine Negative (Negative); Color Urine Light Yellow (Yellow); Glucose Urine UA Negative (Negative); Ketones Urine Negative (Negative); Leukocyte Esterase Ur Negative (Negative); Nitrate Urine Negative (Negative); Protein Urine Negative (Negative); Urobilinogen Urine 0.2 mg/dL (0.2-1.0)
[2024-05-21 10:23] LABS: Basophils Absolute Auto 0.09 K/mm3 (0.00-0.10); Basophils Percent Auto 1.1 % (0.0-1.0); Eosinophils Absolute Auto 0.31 K/mm3 (0.02-0.50); Eosinophils Percent Auto 3.8 % (1.0-6.0); Hematocrit 45.6 % (40.0-54.0); Hemoglobin 15.3 g/dL (14.0-18.0); Immature Granulocyte Absolute 0.04 K/mm3 (0.00-0.00); Immature Granulocyte Percent A 0.5 % (0.0-0.0); Lymphocytes Absolute Auto 2.41 K/mm3 (1.10-4.50); Lymphocytes Percent Auto 29.4 % (18.0-42.0); Mean Corpuscular HGB Conc 33.6 g/dL (32-36); Mean Corpuscular Volume 92.3 fL (78.0-102.0); Mean Platelet Volume 12.4 fl (8.7-11.0); Monocytes Absolute Auto 0.85 K/mm3 (0.10-0.90); Monocytes Percent Auto 10.4 % (2.0-11.0); Neutrophils Percent Auto 54.8 % (50.0-70.0); Platelet Count Result 236 K/mm3 (150-420); Red Blood Count 4.94 M/mm3 (4.70-6.10); Red Cell Distribution Width 12.4 % (11.6-14.4); White Blood Count 8.2 K/mm3 (4.8-10.8)
[2024-05-21 10:51] LABS: Alanine Aminotransferase 32 U/L (16-63); Albumin Level 3.9 g/dL (3.4-5.0); Alkaline Phosphatase 66 U/L (46-116); Anion Gap 14 mmol/L (4-12); Aspartate Amino Transferase 21 U/L (15-37); Bilirubin,Total 0.5 mg/dL (0.00-1.00); Blood Urea Nitrogen 16 mg/dL (7-18); Calcium 8.8 mg/dL (8.5-10.1); Carbon Dioxide 23 mmol/L (21-32); Chloride 101 mmol/L (98-108); Cholesterol 188 mg/dL (0-200); Creatine Kinase 139 U/L (39-308); Estimated Glomerular Filt Rate > 60; Glucose 106 mg/dL (70-99); HDL Direct 58 mg/dL (40-60); LDL Cholesterol Calculated 105 mg/dL (<130); Osmolality Calculated 287 mOsm/kg (285-295); Potassium 4.5 mmol/L (3.5-5.1); Sodium 138 mmol/L (136-145); Triglycerides 126 mg/dL (0-150)
== END 2024-05-21 10:05 | disposition home or self-care (01) ==
LOC: CHSLAB 10:06
PROVIDERS: PCP Internal Medicine; Visit Provider Internal Medicine
DX: I25.10 Atherosclerotic heart disease of native coronary artery without angina pectoris (principal); R73.01 Impaired fasting glucose; E78.2 Mixed hyperlipidemia; R53.83 Other fatigue
CPT/HCPCS: 36415; 80053; 80061; 81003; 82550; 83036; 85025

== ENCOUNTER 2024-11-29 10:19 | Outpatient (CLI) | payer OTHER, SELFPAY ==
[2024-11-29 10:35] LABS: Add Urine Microscopic? NO; Appearance Urine Clear (Clear); Glucose Urine UA Negative (Negative); Hematocrit 43.2 % (40.0-54.0); Hemoglobin 14.2 g/dL (14.0-18.0); Leukocyte Esterase Ur Negative (Negative); Mean Corpuscular HGB Conc 32.9 g/dL (32-36); Mean Corpuscular Hemoglobin 31.5 pg (27.0-31.0); Mean Corpuscular Volume 95.8 fL (78.0-102.0); Nitrate Urine Negative (Negative); Platelet Count Result 180 K/mm3 (150-420); Red Blood Count 4.51 M/mm3 (4.70-6.10); Specific Grav Ur <= 1.005 (1.010-1.020); White Blood Count 7.7 K/mm3 (4.8-10.8)
[2024-11-29 10:48] LABS: MALB Creatinine Ratio 11.0 mg/g (0-30)
[2024-11-29 10:49] LABS: Hemoglobin A1C 6.4 % (<5.7)
--- OUTSIDE RECORDS SUMMARY | 2024-11-29 11:16 | XMS_ITS | Clinical Summary ---
Author Organization [facility] [place] [address] [facility] [address] [facility] [address] [place] [address] Care Team Providers Care Electronic Scale Subassembler Name Role Phone Sara Suresh MD Primary Care Provider [phone] Sara Suresh MD Unavailable [phone] Allergies Active Allergy Reactions Criticality Noted Date [...] Encounters Date Type Department Care Team Description 10/25/2024 11:30 AM CDT Office Visit [facility] Cardiology [address] [facility] [address] [place] [address] Haider Ontiveros MD History of [...] on file Legal Sex Male 11:36 AM EDUCATION AND OUTREACH COORDINATOR Gender Identity Not on file Sexual Orientation Not on file Obstetrics History Last Filed Vital Signs Vital Sign Reading Time Taken Comments Blood Pressure 142/80 10/25/2024 11:18 AM CDT Pulse 74 10/25/2024 11:18 AM CDT Temperature - - Respiratory Rate - - Oxygen Saturation 96% 10/25/2024 11: 18 AM CDT Inhaled Oxygen Concentration - - Weight 111.3 kg (245 lb 4.8 oz) 025 11:18 AM CDT Height 193 cm (6' 4) 10/25/2024 11:18 AM CDT Body Mass Index 29.86 10/25/2024 11:18 AM CDT Plan of Treatment Health Maintenance Due Date Last Done Comments Colon Cancer Screening-Colonoscopy 1966 Depression Screening 1966 Hepatitis C Screening 1966 Prostate Cancer Screening-PSA 1966 DTaP/Tdap/Td Vaccine (1 - Tdap) 1977 Hepatitis B Screening 02/19/1984 Regular Well Visit/Exam 18-64 02/19/1984 Zoster Vaccine (1 of 2) 02/19/2016 Influenza Vaccine (#1) 2024 Pneumococcal vaccine <65 Aged Out No longer eligible based on patient's age to complete this topic Insurance [facility] CHOICE PLUS [facility] H[facility]/PPO Address: [place] [address] CHOICE PLUS [facility]O Address: [place] [address] CHOICE PLUS [facility] H[facility]/PPO Address: [place] [address] Care Teams Electronic Scale Subassembler Relationship Specialty Start Date End Date Sara Suresh MD [address] [place] [address] PCP - General Internal Medicine 03/25/22 Sara Suresh MD NPI: [id number] [place] [id number] Internal Medicine 03/25/22
[2024-11-29 11:19] LABS: Alanine Aminotransferase 21 U/L (6-50); Albumin Level 4.4 g/dL (3.5-5.1); Alkaline Phosphatase 51 U/L (38-126); Anion Gap 8 mmol/L (4-12); Aspartate Amino Transferase 21 U/L (17-59); Bilirubin,Total 0.5 mg/dL (0.2-1.3); Blood Urea Nitrogen 11 mg/dL (9-20); Calcium 9.3 mg/dL (8.4-10.2); Carbon Dioxide 25 mmol/L (22-30); Chloride 104 mmol/L (98-107); Cholesterol 189 mg/dL (0-200); Creatine Kinase 65 U/L (55-170); Estimated Glomerular Filt Rate > 60; Glucose 101 mg/dL (65-110); HDL Direct 57 mg/dL; Osmolality Calculated 283 mOsm/kg (285-295); Potassium 4.4 mmol/L (3.4-5.0); Sodium 137 mmol/L (137-145); Total Protein 7.0 g/dL (6.3-8.2); Triglycerides 146 mg/dL (<150)
[2024-11-29 11:37] LABS: Free T4 Free Thyroxine 0.72 ng/dL (0.78-2.19)
[2024-11-29 11:51] LABS: Prostate Specific Antigen 1.8 ng/mL (< OR = 4.0); Thyroid Stimulating Hormone 1.600 uIU/mL (0.465-4.680)
== END 2024-11-29 10:20 | disposition home or self-care (01) ==
LOC: CHSLAB 10:22
PROVIDERS: PCP Internal Medicine; Visit Provider Internal Medicine
DX: Z00.00 Encounter for general adult medical examination without abnormal findings (principal); E11.9 Type 2 diabetes mellitus without complications; I10 Essential (primary) hypertension; E78.2 Mixed hyperlipidemia; R53.83 Other fatigue
CPT/HCPCS: 36415; 80053; 80061; 81003; 82043; 82550; 83036; 84153; 84439; 84443; 85027